=== PATIENT | male | born 1990 | race Caucasian/White ===

== ENCOUNTER 2016-10-31 18:05 | Emergency (ER) | payer SELFPAY ==
[~2016-10-31 18:05] MED LIST: PRED20 PO; VENTAER INH; ZITH250T PO
[2016-10-31 18:10] VITALS: O2SAT 98
[2016-10-31 18:11] VITALS: BP 139/88; PULSE 101; RESP 24; TEMP 99.9; O2SAT 100
[2016-10-31] MEDS ORDERED: SODIUM CHLORIDE 0.9% FLUSH 10 ML FLUSH IVF PRN (18:15)
--- NOTE | 2016-10-31 18:17 | PD ---
HPI Chief Complaint: OD/ Ingestion Time Seen by Provider: 18:10 Travel History International Travel<30 days: No Contact w/Intl Traveler<30days: No Traveled to known affect area: No History of Present Illness HPI 26-year-old male with history of HIV currently on medications, opiate overdose, presents to the ER today brought in by EMS after he was found on the ground and the son completely obtunded, barely breathing, and was given Narcan with complete awakening in the ER. He denies taking any substances. He was told that he was given Narcan and he states he is familiar with Narcan has been given in the past. He is fairly agitated, states he had to go to school. Modifying Factors: None Associated Signs & Symptoms: Suspected opiate overdose, given Narcan Risk Factors: HIV history, previous history of substance use PFSH Past Medical History Depression: Yes Immune Disorder: Yes (HIV) Past Surgical History Appendectomy: Yes Social History Alcohol Use: Yes (occ) Tobacco Use: Yes (ppd) Substance Use: Yes (hx of heroin use) Allergies-Medications (Allergen,Severity, Reaction): Coded Allergies: Haldol (Verified Allergy, Severe, 10/31/16) Reported Meds & Prescriptions Reported Meds & Active Scripts Active Zithromax Z-Shant (Azithromycin) 250 Mg Tab 250 Mg PO DIRECTED 5 Days 500 MG (2 TABLETS) PO ON DAY 1, THEN 250 MG (1 TABLET) PO ON DAYS 2 TO 5. Ventolin Hfa (Albuterol Sulfate) 18 Gm Aero 2 Puff INH Q4H PRN * SHAKE WELL BEFORE USE * Deltasone (Prednisone) 20 Mg Tab 20 Mg PO BID Review of Systems ROS Limitations: Uncooperative Except as stated in HPI: all other systems reviewed are Neg (agitated) Physical Exam Narrative GENERAL: Well-developed young white male who is fairly agitated in the ER, in moderate distress. Alert, awake, answering questions. SKIN: Focused skin assessment warm/dry. HEAD: Notable abrasions to the left forehead. Normocephalic. EYES: Pupils are large, equal and round and briskly reactive to light bilaterally. No scleral icterus. No injection or drainage. ENT: No nasal bleeding or discharge. Mucous membranes pink and moist. NECK: Trachea midline. No JVD. CARDIOVASCULAR: Regular rate and rhythm. No murmur appreciated. RESPIRATORY: No accessory muscle use. Clear to auscultation. Breath sounds equal bilaterally. GASTROINTESTINAL: Abdomen soft, non-tender, nondistended. Hepatic and splenic margins not palpable. MUSCULOSKELETAL: No obvious deformities. No clubbing. No cyanosis. No edema. NEUROLOGICAL: Awake and alert. No obvious cranial nerve deficits. Motor grossly within normal limits. Normal speech. PSYCHIATRIC: Appropriate mood and affect; insight and judgment normal. Data Data Last Documented VS Vital Signs Date Time Temp Pulse Resp B/P Pulse Ox O2 Delivery O2 Flow Rate FiO2 10/31/16 18:11 99.9 101 24 139/88 100 Orders Electrocardiogram (10/31/16 18:10) Complete Blood Count With Diff (10/31/16 18:) Comprehensive Metabolic Panel (10/31/16 18:10) Iv Access Insert/Monitor (10/31/16 18:) Ecg Monitoring (10/31/16 18:) Oximetry (10/31/16 18:10) Sodium Chloride 0.9% Flush (Ns Flush) (10/31/16 18:15) Drug Screen, Random Urine (10/31/16 18:10) Alcohol (Ethanol) (10/31/16 18:10) Ct Brain W/O Iv Contrast(Rout) (10/31/16:17) MDM Medical Decision Making Medical Screen Exam Complete: Yes Emergency Medical Condition: Yes Medical Record Reviewed: Yes Differential Diagnosis Agitation, apparent overdoserule out coingestions versus intracranial injuries Narrative Course Patient is fairly agitated in the ER, states that he has to go to class, wants to leave right away, despite having been told that he almost today. He was told that the Narcan will not last and whatever substance he took may cause overdose again. Patient is refusing to listen despite being told multiple times , seems agitated, may be disoriented as well. act has been instituted due to patient's insistent that he gets out of the ER and goes act his car and drives to class. There is concern about him being under multiple substances, and causing car accidents which may injure himself or others. Lab workup was ordered for the patient. CT of the brain was also ordered considering he was found down with abrasions over his forehead. Physician Communication Physician Communication Case is signed out at 7 PM to oncoming physician awaiting workup and observation. [place] acted. Diagnosis Primary Impression: Substance abuse Additional Impression: Opiate or related narcotic overdose Nadia Rosenberg MD October 31, 2016 18:17
[2016-10-31 19:00] LABS: ANION GAP 7 MEQ/L (5-15)
[2016-10-31 19:04] LABS: ALKALINE PHOSPHATASE 56 U/L (45-117); ALT (GPT) 29 U/L (12-78); AST (GOT) 27 U/L (15-37); BICARBONATE 29.4 MEQ/L (21.0-32.0); BLOOD UREA NITROGEN 16 MG/DL (7-18); CHLORIDE 104 MEQ/L (98-107); GLOMERULAR FILTRATION RATE 90 ML/MIN (>89); POTASSIUM 3.4 MEQ/L (3.5-5.1); SODIUM (NA) 140 MEQ/L (136-145); TOTAL BILIRUBIN ADULT 0.5 MG/DL (0.2-1.0)
--- NOTE | 2016-10-31 19:36 | PD ---
Physical Exam Date Seen by Provider: October 31, 2016 Time Seen by Provider: 19:34 Narrative Accepted in transfer of care from Dr. Rosenberg GENERAL: Well-developed well-nourished male sitting on stretcher intermittently pacing the exam room waiting on lab results and imaging study; GCS 15 Data Data Last Documented VS Vital Signs Date Time Temp Pulse Resp B/P Pulse Ox O2 Delivery O2 Flow Rate FiO2 10/31/16 18:11 99.9 101 24 139/88 100 10/31/16 18:10 Room Air Orders Electrocardiogram (10/31/16 18:10) Complete Blood Count With Diff (10/31/16 18:10) Comprehensive Metabolic Panel (10/31/16 18:10) Iv Access Insert/Monitor (10/31/16 18:10) Ecg Monitoring (10/31/16 18:10) Oximetry (10/31/16 18:10) Sodium Chloride 0.9% Flush (Ns Flush) (10/31/16 18:15) Drug Screen, Random Urine (10/31/16 18:10) Alcohol (Ethanol) (10/31/16 18:10) Ct Brain W/O Iv Contrast(Rout) (10/31/16 18:17) Psych Screen (10/31/16 19:11) Restraints Violent (10/31/16 20:08) Labs Laboratory Tests Test 10/31/16 10/31/16 10/31/16 18:15 21:44 21:51 Sodium Level 140 MEQ/L Potassium Level 3.4 MEQ/L Chloride Level 104 MEQ/L Carbon Dioxide Level 29.4 MEQ/L Anion Gap 7 MEQ/L Blood Urea Nitrogen 16 MG/DL Creatinine 1.01 MG/DL Estimat Glomerular Filtration 90 ML/MIN Rate Random Glucose 137 MG/DL Calcium Level 8.7 MG/DL Total Bilirubin 0.5 MG/DL Aspartate Amino Transf 27 U/L (AST/SGOT) Alanine Aminotransferase 29 U/L (ALT/SGPT) Alkaline Phosphatase 56 U/L Total Protein 7.7 GM/DL Albumin 4.2 GM/DL Ethyl Alcohol Level LESS THAN 3 MG/DL White Blood Count 14.6 TH/MM3 Red Blood Count 4.35 MIL/MM3 Hemoglobin 14.2 GM/DL Hematocrit 41.4 % Mean Corpuscular Volume 95.1 FL Mean Corpuscular Hemoglobin 32.7 PG Mean Corpuscular Hemoglobin 34.4 % Concent Red Cell Distribution Width 13.0 % Platelet Count 273 TH/MM3 Mean Platelet Volume 8.5 FL Neutrophils (%) (Auto) 62.2 % Lymphocytes (%) (Auto) 20.6 % Monocytes (%) (Auto) 8.4 % Eosinophils (%) (Auto) 8.2 % Basophils (%) (Auto) 0.6 % Neutrophils # (Auto) 9.1 TH/MM3 Lymphocytes # (Auto) 3.0 TH/MM3 Monocytes # (Auto) 1.2 TH/MM3 Eosinophils # (Auto) 1.2 TH/MM3 Basophils # (Auto) 0.1 TH/MM3 CBC Comment DIFF FINAL Differential Comment Urine Opiates Screen POS Urine Barbiturates Screen NEG Urine Amphetamines Screen NEG Urine Benzodiazepines Screen POS Urine Cocaine Screen POS Urine Cannabinoids Screen POS MDM Medical Record Reviewed: Yes Supervised Visit with [facility]: No Interpretation(s) CBC & BMP Diagram 10/31/16 18:15 10/31/16 21:[address] 10/31/167 Signed Impressions: Service Date/Time: Monday, October 31, 2016 20:19 - CONCLUSION: No acute intracranial findings Vince Santos MD Vital Signs Date Time Temp Pulse Resp B/P Pulse Ox O2 Delivery O2 Flow Rate FiO2 10/31/16 18:11 99.9 101 24 139/88 100 10/31/16 18:10 98 Room Air Urine drug screen: positive for opiates benzodiazepines cocaine and cannabinoids Serum alcohol: less than 3, not elevated Differential Diagnosis Accepted in transfer of care from Dr. Rosenberg, please refer to her dictation Narrative Course Accepted in transfer of care from Dr. Rosenberg, for follow up of diagnostics and disposition Patient waiting for lab results Patient becoming agitated wanting to elope and leave the emergency department discussed with patient need for imaging study and cooperation; patient is informed that he needs to say for at least 4 hours and that we know that as the Narcan clears assist him he won't have any recurrence of his episode of altered mentation or respiratory depression or collapse. Patient with sitter at bedside walking back and forth and exam room requesting to be discharged At 10:06 PM waiting on urine drug screen results. Patient admits to ingesting opiate Dilaudid benzodiazepine and Xanax marijuana on a daily basis and cocaine. Patient is remaining cooperative and waiting for urine drug screen results. The time is 10:30 PM patient has been monitored in the emergency department for more than 4 hours without any recurrence of somnolence or respiratory depression ; patient is cooperative and awaiting results as he is desirous of being discharged to home;GCS 15; urine drug screen is resulted and consistent with what patient states he ingested patient is stable for outpatient management he is encouraged to follow-up with [facility] for detox program resources. Diagnosis Primary Impression: Substance abuse Additional Impression: Opiate or related narcotic overdose [facility] Patient Instructions: General Instructions Additional Instruction: Discontinue polysubstance abuse Do not drink alcoholic beverages Follow-up with [facility] for referral for detox programs and rehabilitation programs regarding your polysubstance abuse issues Return to the emergency department for any concerns or change in condition Med/Other Pt SpecificInfo: No Meds Exist/No RX given Disposition: 01 DISCHARGE HOME Condition: Stable Ranjana Medrano MD October 31, 2016 19:36
--- NOTE | 2016-10-31 20:30 | RADRPT ---
EXAM DATE/TIME: 10/31/2016 20:19 [facility] COMPARISON: No previous studies available for comparison. INDICATIONS : Altered mental status. RADIATION DOSE: 44.52 CTDIvol (mGy) MEDICAL HISTORY : HIV. SURGICAL HISTORY : Appendectomy. ENCOUNTER: Initial ACUITY: 1 day PAIN SCALE: 0/10 LOCATION: cranial TECHNIQUE: Multiple contiguous axial images were obtained of the head. Using automated exposure control and adj ustment of the mA and/or kV according to patient size, radiation dose was kept as low as reasonably a chievable to obtain optimal diagnostic quality images. FINDINGS: CEREBRUM: The ventricles are normal for age. No evidence of midline shift, mass lesion, hemorrhage or acute in farction. No extra-axial fluid collections are seen. POSTERIOR FOSSA: The cerebellum and brainstem are intact. The 4th ventricle is midline. The cerebellopontine angle i s unremarkable. EXTRACRANIAL: The visualized portion of the orbits is intact. Mild mucosal sinus disease involving ethmoids. SKULL: The calvaria is intact. No evidence of skull fracture. CONCLUSION: No acute intracranial findings Vince Santos MD on October 31, 2016 at 20:27 Board Certified Radiologist. This report was verified electronically.
[2016-10-31 22:17] LABS: AUTOMATED NEUTROPHIL # 9.1 TH/MM3 (1.8-7.7); BASOPHIL # 0.1 TH/MM3 (0-0.2); BASOPHIL % 0.6 % (0.0-2.0); EOSINOPHIL # 1.2 TH/MM3 (0-0.4); EOSINOPHIL % 8.2 % (0.0-4.0); HEMATOCRIT 41.4 % (39.0-51.0); HEMO FLAGS DIFF FINAL; LYMPH % 20.6 % (9.0-44.0); MEAN CELL VOLUME 95.1 FL (80.0-100.0); MEAN CORPUSCULAR HEMOGLOBIN 32.7 PG (27.0-34.0); MEAN CORPUSCULAR HGB CONC 34.4 % (32.0-36.0); MONO % 8.4 % (0.0-8.0); NEUT % 62.2 % (16.0-70.0); PLATELET COUNT 273 TH/MM3 (150-450); RED BLOOD COUNT 4.35 MIL/MM3 (4.50-5.90); WHITE BLOOD COUNT 14.6 TH/MM3 (4.0-11.0)
[2016-10-31 22:25] LABS: AMPHETAMINE, URINE NEG (NEG); BARBITURATES, URINE NEG (NEG); COCAINE, URINE POS (NEG)
--- NOTE | 2016-11-01 15:12 | EKG ---
Date Performed: 10/31/2016 Time Performed: 19:23:39 PTAGE: 26 years EKG: Sinus rhythm POSSIBLE RIGHT VENTRICULAR CONDUCTION DELAY BORDERLINE ECG NO PREVIOUS TRACING DOCTOR: Chivo Gonzalez Interpretating Date/Time 11/01/2016 15:10:25
== END 2016-10-31 22:55 | disposition home or self-care (01) ==
LOC: NEPC 18:05
DX: T40.601A Poisoning by unspecified narcotics, accidental (unintentional), initial encounter (principal); B20 Human immunodeficiency virus [HIV] disease; F32.9 Major depressive disorder, single episode, unspecified; R45.1 Restlessness and agitation
CPT/HCPCS: 70450; 80053; 80307; 85025; 93005

== ENCOUNTER 2016-12-15 18:07 | Emergency (ER) | payer SELFPAY ==
[~2016-12-15] VITALS: Ht 185.4 cm; Wt 70.0 kg
[2016-12-15 18:12] VITALS: BP 128/78; PULSE 91; RESP 14; TEMP 98.1; O2SAT 100
[2016-12-15 18:21] VITALS: BP 128/78; PULSE 106; RESP 14; TEMP 98.1; O2SAT 98
--- NOTE | 2016-12-15 18:26 | PD ---
HPI . heroin overdose (Ani Tierney) Chief Complaint: OD/ Ingestion Time Seen by Provider: 18:26 (Ani Tierney) Time Seen by Provider: 18:26 (Cadence Sher DO) Travel History International Travel<30 days: No Contact w/Intl Traveler<30days: No Traveled to known affect area: No (Ani Tierney) History of Present Illness HPI 26-year-old male with HIV, polysubstance abuser here with drug overdose. Patient apparently overdosed on some heroin and was found by his boyfriend in his home unconscious. Paramedics arrived on scene and found the patient to be apneic and unresponsive. He was given a total of 2.4 mg of Narcan and returned now to his baseline level of functioning. Patient is AAO 4 and tells me that he feels fabulous. He tells me that he had a wild morning where he was drinking lots of alcohol and decided to shoot up heroin. He does not recall how much of this he actually used. He is now very apologetic and tells us that he was not trying to kill himself. He denies any suicidal or homicidal ideation. He says he is very thankful that he was able to be revived by Narcan. He is agreeable to labs and imaging. He currently denies any physical complaints. He tells me that emotionally he feels torn that he decided to use such a large dose of heroin. He is worried that his boyfriend will leave him. ( Ani Tierney) [facility] Past Medical History Depression: Yes Immune Disorder: Yes (HIV) Medical other: Yes (HIV POSITIVE) (Ani Tierney) Past Surgical History Appendectomy: Yes (Ani Tierney) Social History Alcohol Use: Yes (occ) Tobacco Use: Yes (ppd) Substance Use: Yes (hx of heroin use) (Ani Tierney) Allergies-Medications (Allergen,Severity, Reaction): Coded Allergies: Haldol (Verified Allergy, Severe, 12/15/16) Reported Meds & Prescriptions Reported Meds & Active Scripts Active Reported Odefsey (Vqgwzbvrtujss-Adsgqvtatwv-Dkdbbfmig Alafenam) 200-200-25 Mg Tab 1 Tab PO DAILY (Cadence Sher DO) Review of Systems General / Constitutional: No: Fever Eyes: No: Visual changes HENT: No: Headaches, Lightheadedness Cardiovascular: No: Chest Pain or Discomfort, Irregular Rhythm Respiratory: No: Cough, Shortness of Breath, Wheezing, Sneezing Gastrointestinal: No: Nausea, Vomiting, Abdominal Pain Genitourinary: No: Dysuria Musculoskeletal: No: Pain Skin: No Rash Neurologic: No: Weakness, Syncope Psychiatric: No: Depression Endocrine: No: Polydipsia Hematologic/Lymphatic: No: Easy Bruising (Ani Tierney) Physical Exam Narrative GENERAL: AAO x 4, no acute distress, Well-nourished, well-developed patient. SKIN: Warm and dry. No visible rashes or bruising. HEAD: Normocephalic and atraumatic. EYES: No scleral icterus. No injection or drainage. Pupils 2 mm and reactive to light ENT: No nasal drainage noted. Mucous membranes pink. Airway patent. NECK: Supple, trachea midline. No JVD. CARDIOVASCULAR: Regular rate and rhythm without murmurs, gallops, or rubs. RESPIRATORY: Breath sounds equal bilaterally. No accessory muscle use. No rhonchi or rales. GASTROINTESTINAL: Abdomen soft, non-tender, nondistended. EXTREMITIES: No cyanosis or edema. BACK: Nontender without obvious deformity. No CVA tenderness. NEURO: CN II-12 intact, mortgage loan closer strength normal b/l, UE and LE 5/5, no focal deficits PSYCH: AAO x 4, normal affect. (Ani Tierney) Data Data Last Documented VS Vital Signs Date Time Temp Pulse Resp B/P Pulse Ox O2 Delivery O2 Flow Rate FiO2 12/15/16 18:51 98 Room Air 12/15/16 18:21 98.1 106 14 128/78 (Cadence Sher DO) Orders Electrocardiogram (12/15/16 18:26) Complete Blood Count With Diff (12/15/16 18:26) Comprehensive Metabolic Panel (12/15/16 18:26) Chest, Single Ap (12/15/16 18:26) Iv Access Insert/Monitor (12/15/16 18:26) Ecg Monitoring (12/15/16 18:26) Oximetry (12/15/16 18:26) Sodium Chloride 0.9% Flush (Ns Flush) (12/15/16 18:30) Alcohol (Ethanol) (12/15/16 18:26) (Cadence Sher DO) Labs Laboratory Tests Test 12/15/16 18:25 White Blood Count 10.9 TH/MM3 Red Blood Count 4.71 MIL/MM3 Hemoglobin 15.2 GM/DL Hematocrit 45.9 % Mean Corpuscular Volume 97.4 FL Mean Corpuscular Hemoglobin 32.2 PG Mean Corpuscular Hemoglobin 33.1 % Concent Red Cell Distribution Width 13.7 % Platelet Count 250 TH/MM3 Mean Platelet Volume 8.5 FL Neutrophils (%) (Auto) 48.3 % Lymphocytes (%) (Auto) 35.9 % Monocytes (%) (Auto) 8.1 % Eosinophils (%) (Auto) 7.1 % Basophils (%) (Auto) 0.6 % Neutrophils # (Auto) 5.3 TH/MM3 Lymphocytes # (Auto) 3.9 TH/MM3 Monocytes # (Auto) 0.9 TH/MM3 Eosinophils # (Auto) 0.8 TH/MM3 Basophils # (Auto) 0.1 TH/MM3 CBC Comment DIFF FINAL Differential Comment (Cadence Sher DO) MDM Medical Decision Making Medical Screen Exam Complete: Yes Emergency Medical Condition: Yes Medical Record Reviewed: Yes Differential Diagnosis Heroin overdose, polysubstance abuse, drug induced mood disorder Narrative Course 26-year-old male status post drug overdose with heroin 5 x 2.4 mg of Narcan here and tells me he is feeling well. IV access was obtained, labs were drawn and imaging was ordered. Unfortunately at 1914 patient decides that he wants to leave AGAINST MEDICAL ADVICE. I've had a prolonged discussion with patient regarding the risk and possible consequences of leaving without close observation for at least the next 3-4 hours. I've reiterated to him that is a possible outcome, and despite my recommendations to remain in the hospital to follow labs and to be monitored, patient decides to sign out AGAINST MEDICAL ADVICE. He is AAO 4 and of sound mind to make this decision. (Ani Tierney) Diagnosis Primary Impression: Left against medical advice Condition: Stable Ani Tierney Dec 15, 2016 18:26 Cadence Sher DO Dec 15, 2016 21:36
[2016-12-15] MEDS ORDERED: EMTR1TAB2 PO (18:27)
[2016-12-15] MEDS ORDERED: SODIUM CHLORIDE 0.9% FLUSH 10 ML FLUSH IVF PRN (18:30)
[2016-12-15 18:42] LABS: AUTOMATED NEUTROPHIL # 5.3 TH/MM3 (1.8-7.7); BASOPHIL # 0.1 TH/MM3 (0-0.2); BASOPHIL % 0.6 % (0.0-2.0); EOSINOPHIL # 0.8 TH/MM3 (0-0.4); EOSINOPHIL % 7.1 % (0.0-4.0); HEMATOCRIT 45.9 % (39.0-51.0); HEMO FLAGS DIFF FINAL; LYMPH % 35.9 % (9.0-44.0); LYMPHOCYTE # 3.9 TH/MM3 (1.0-4.8); MEAN CELL VOLUME 97.4 FL (80.0-100.0); MEAN CORPUSCULAR HEMOGLOBIN 32.2 PG (27.0-34.0); MEAN CORPUSCULAR HGB CONC 33.1 % (32.0-36.0); MONO % 8.1 % (0.0-8.0); NEUT % 48.3 % (16.0-70.0); PLATELET COUNT 250 TH/MM3 (150-450); RED BLOOD COUNT 4.71 MIL/MM3 (4.50-5.90); RED CELL DISTRIBUTION WIDTH 13.7 % (11.6-17.2); WHITE BLOOD COUNT 10.9 TH/MM3 (4.0-11.0)
--- NOTE | 2016-12-15 18:47 | RADRPT ---
EXAM DATE/TIME: 12/15/2016 18:27 [facility] COMPARISON: No previous studies available for comparison. INDICATIONS : Syncope. Weakness. MEDICAL HISTORY : None. SURGICAL HISTORY : None. ENCOUNTER: Initial ACUITY: 1 day PAIN SCORE: 6/10 LOCATION: Bilateral chest FINDINGS: A single view of the chest demonstrates the lungs to be symmetrically aerated without evidence of mas s, infiltrate or effusion. The cardiomediastinal contours are unremarkable. Osseous structures are intact. CONCLUSION: Normal examination. Vince Patel MD on December 15, 2016 at 18:43 Board Certified Radiologist. This report was verified electronically.
[2016-12-15 18:51] VITALS: O2SAT 98
--- NOTE | 2016-12-16 12:18 | EKG ---
Date Performed: 12/15/2016 Time Performed: 18:57:00 PTAGE: 26 years EKG: Sinus rhythm POSSIBLE RIGHT VENTRICULAR CONDUCTION DELAY Since previous tracing, no significant change noted [facility] ECG PREVIOUS TRACING : 10/31/2016 19.23 DOCTOR: Prudencio Christianson Interpretating Date/Time 12/16/2016 12:16:08
== END 2016-12-15 19:30 | disposition left against medical advice (07) ==
LOC: NEPC 18:07
DX: T40.1X1A Poisoning by heroin, accidental (unintentional), initial encounter (principal); F32.9 Major depressive disorder, single episode, unspecified; Z21 Asymptomatic human immunodeficiency virus [HIV] infection status; Z53.21 Procedure and treatment not carried out due to patient leaving prior to being seen by health care provider; Z72.0 Tobacco use; Z88.5 Allergy status to narcotic agent; Z79.899 Other long term (current) drug therapy
CPT/HCPCS: 71010; 80053; 80307; 85025; 93005

== ENCOUNTER 2018-06-27 11:31 | Inpatient (IN) ==
[2018-06-27 16:16] LABS: Baso # (Auto) 0.2 th/mm3 (0.0-0.2); Baso % (Auto) 0.6 % (0.0-2.0); Eos # (Auto) 0.3 th/mm3 (0.0-0.4); Eos % (Auto) 1.1 % (0.0-4.0); Hematocrit 40.4 % (39.0-51.0); Hemoglobin 13.7 gm/dL (13.0-17.0); Lymph # (Auto) 2.2 th/mm3 (1.0-4.8); Lymph % (Auto) 8.8 % (9.0-44.0); Mean Corpuscular HGB Conc 33.8 % (32.0-36.0); Mean Corpuscular Hemoglobin 31.4 pg (27.0-34.0); Mean Corpuscular Volume 92.9 fL (80.0-100.0); Mono # (Auto) 1.8 th/mm3 (0.0-0.9); Mono % (Auto) 7.3 % (0.0-8.0); Neut # (Auto) 20.7 th/mm3 (1.8-7.7); Neut % (Auto) 82.2 % (16.0-70.0); Platelet Count 320 th/mm3 (150-450); Red Blood Count 4.35 mil/mm3 (4.50-5.90); Red Cell Distribution Width 14.8 % (11.6-17.2); White Blood Count 25.2 th/mm3 (4.0-11.0)
[2018-06-27] MEDS ORDERED: Vancomycin Inj 1,000 MG in Sodium Chlor 0.9% Inj 250 ML IV.SIG ONE (16:29)
[2018-06-27] MEDS ORDERED: Sod Chloride 0.9% Inj 1,000 ML IV.SIG SCH (16:30)
--- NOTE | 2018-06-27 17:00 | US ---
EXAM DATE: 06/27/2018 4:55 PM EST AGE/SEX: 27 years / Male INDICATIONS: Right arm pain. CLINICAL DATA: This is the patient's initial encounter. Patient reports that signs and symptoms have been present for 1 day and indicates a pain score of 8/10. MEDICAL/SURGICAL HISTORY: HIV. Appendectomy. COMPARISON: No prior exams available for comparison. FINDINGS: There is flow noted in the right jugular vein. However, there is occlusive thrombus noted in the right subclavian vein and axillary vein. This is characteristic of DVT. Flow is demonstrated i n the right brachial vein. There is flow noted in the radial and ulnar veins. The basilic vein appear s to be patent. Other: None. CONCLUSION: 1. There is occlusive deep venous thrombosis in the right subclavian and axillary veins. Electronically signed by: Eddy Acosta MD Board Certified Radiologist 06/27/2018 4:58 PM EST
--- NOTE | 2018-06-27 17:10 | ED ---
HPI General Chief complaint: Back Pain/Injury Stated complaint: Right Side Pain Time Seen by Provider: 06/27/18 15:20 History of Present Illness HPI narrative: Patient is a 27-year-old male with a history of HIV and IV drug use. Patient presents to the emergency room with complaints of low back pain as well as possible access in the right axillary region. He also has notable swelling of the veins in his right arm. Patient was seen yesterday at [facility] for low back pain. Patient states he had an x-ray done as well as a CT which were reportedly negative. Presents today very concerned about the swelling in his arm. As well as his back. Denies any saddle anesthesia, bowel or bladder incontinence. No lower extremity weakness, numbness, or tingling. He reports he has had fevers as high as 104.1 for the last 5 days. Noticed the swelling significantly increased in his arm over the last 24 hours. Patient states he was clean from IV drug use for 6 months until approximately a week ago and he used it again. He is concerned about the development of an abscess. Patient states his CD4 count in February was 1000 but then a repeat done in March was 26. No complaints of abdominal pain, nausea, vomiting, upper respiratory symptoms, SOB. He is complaining of some right chest discomfort. Related Data Home Medications Medication Instructions Recorded Confirmed sysxmxwiat-ucepkqge-bnhpve ala 1 tab PO DAILY 06/27/18 06/27/18 [Karolinaefsey] Allergies Allergy/AdvReac Type Severity Reaction Status Date / Time haloperidol Allergy Severe Muscle Pain Unverified 06/27/18 15:10 Review of Systems ROS: all other systems reviewed are negative [facility] Medical History Medical History HIV (human immunodeficiency virus infection) (Acute) Surgical History Surgical History History of appendectomy (Acute) Social History Social History Substance History: Active Abuse Second Hand Smoke Exposure: Yes Smoking Status: Current every day smoker Tobacco Type: Cigarettes How Often Do You Have a Drink Containing Alcohol: Monthly or less Recent Travel in [facility] within the Last 8 Weeks: No Recent Out of Country Travel within the Last 8 Weeks: No Substance Abuse Detail Heroin: Substance Use Status: Active Route Used Substance Abuse: Intravenously Reason for Use: Get High Methamphetamine: Substance Use Status: Active Route Used Substance Abuse: Intravenously Reason for Use: Get High Immunization History Tetanus Immunization: <5 Years Exam Narrative Exam Narrative: GENERAL: Alert, thin, male SKIN: Focused skin assessment warm/dry. Swelling noted in the right axillary region but no definite abscess HEAD: Atraumatic. Normocephalic. EYES: Pupils equal and round. No scleral icterus. No injection or drainage. ENT: No nasal bleeding or discharge. Mucous membranes pink and moist. NECK: Trachea midline. No JVD. CARDIOVASCULAR: Regular rate and rhythm. No murmur appreciated. RESPIRATORY: No accessory muscle use. Clear to auscultation. Breath sounds equal bilaterally. GASTROINTESTINAL: Abdomen soft, non-tender, nondistended. Hepatic and splenic margins not palpable. MUSCULOSKELETAL: Prominent swollen veins noted in the right arm with palpable mass in the axillary region on the right. Patient has positive radial pulses. There is also notable paraspinal swelling of the lumbar region bilaterally with left greater than right. NEUROLOGICAL: Awake and alert. No obvious cranial nerve deficits. Motor grossly within normal limits. Normal speech. PSYCHIATRIC: Appropriate mood and affect; insight and judgment normal. Course Initial Documented Vital Signs Temperature 97.9 F 06/27/18 11:44 Pulse Rate 87 06/27/18 11:44 Respiratory Rate 18 06/27/18 11:44 Blood Pressure 129/64 06/27/18 11:44 Pulse Oximetry 98 06/27/18 11:44 Last Documented Vital Signs Temperature 97.9 F 06/27/18 11:44 Pulse Rate 78 06/27/18 20:46 Respiratory Rate 15 06/27/18 20:46 Blood Pressure 124/68 06/27/18 20:46 Pulse Oximetry 96 06/27/18 20:46 Medical Decision Making LITO Attestation LITO supervised visit: Yes Attestation: I, Dr. Blackmon, have reviewed the advance practice practitioner's documentation and am in agreement, met with the patient face to face, made the diagnosis, and the medical decision making was done by me. *My assessment and Findings: Right arm DVT. Low back pain. Patient has leukocytosis. History of IV drug abuse. MRI lumbar spine pending. [facility] Narrative Medical decision making narrative: 27-year-old male patient with a history of HIV and IV drug use presents to the emergency room today with complaints of right arm swelling and pain as well as lumbar back pain. As mentioned shows prominent veins in the right arm as well as palpable mass in the right axillary region. Assessment of the back shows paraspinal swelling greater on the left side. Given swelling Doppler of the right arm was ordered. We will try to attempt imaging reports done at [facility]. IV established. CBC, CMP ordered. CBC showed a significant leukocytosis with a WBC count of 25 with a left shift. Lactic acid and blood cultures ordered. Case discussed with Dr. Velásquez and then subsequently with Dr. Blackmon advised MRI of the spine. 194 PM. I spoke with Dr. Han, neurosurgeon industrial/organizational psychologist. Advised ISC admission , IV antibiotic, neurosurgeon consultation and IR consultation for possible CT- guided aspiration. The case complicated with patient has positive for right arm DVTs. I spoke with Dr. Han, neurosurgeon industrial/organizational psychologist. Advised not to anticoagulate patient at this point. Vancomycin and Zosyn IV given. Patient was admitted [facility]. Neurosurgeon will be consulted. Dr. Han advised also consult IR for possible aspiration. Medical Screen Exam Complete: Yes Emergency Medical Condition: Yes Differential Diagnosis Differential Diagnosis: axillary abscess/DVT/lymphadenitis/spinal abscess Lab Data Result diagrams: 06/27/18 16:00 06/27/18 16:00 Lab Results 06/27/18 06/27/18 06/27/18 Range/Units 16:00 16:00 16:30 WBC 25.2 H (4.0-11.0) th/mm3 RBC 4.35 L (4.50-5.90) mil/mm3 Hgb 13.7 (13.0-17.0) gm/dL Hct 40.4 (39.0-51.0) % MCV 92.9 (80.0-100.0) fL MCH 31.4 (27.0-34.0) pg MCHC 33.8 (32.0-36.0) % RDW 14.8 (11.6-17.2) % Plt Count 320 (150-450) th/mm3 MPV 8.0 (7.0-11.0) fL Neut % (Auto) 82.2 H (16.0-70.0) % Lymph % (Auto) 8.8 L (9.0-44.0) % Harlan % (Auto) 7.3 (0.0-8.0) % Eos % (Auto) 1.1 (0.0-4.0) % Baso % (Auto) 0.6 (0.0-2.0) % Neut # (Auto) 20.7 H (1.8-7.7) th/mm3 Lymph # (Auto) 2.2 (1.0-4.8) th/mm3 Harlan # (Auto) 1.8 H (0.0-0.9) th/mm3 Eos # (Auto) 0.3 (0.0-0.4) th/mm3 Baso # (Auto) 0.2 (0.0-0.2) th/mm3 WBC Differential . Differential Comment Auto diff final Sodium 133 L (136-145) meq/L Potassium 4.9 (3.5-5.1) meq/L Chloride 95 L (98-107) meq/L Carbon Dioxide 30.8 (21.0-32.0) meq/L Anion Gap 7 (5-15) meq/L BUN 42 H (7-18) mg/dL Creatinine 1.49 H (0.60-1.30) mg/dL Estimated GFR 57 L (>89) mL/min Random Glucose 102 (74-106) mg/dL Lactic Acid 1.0 (0.4-2.0) mmol/L Calcium 8.4 L (8.5-10.1) mg/dL Total Bilirubin 0.6 (0.2-1.0) mg/dL AST 45 H (15-37) U/L ALT 24 (12-78) U/L Alkaline Phosphatase 257 H (45-117) U/L Total Protein 8.4 H (6.4-8.2) g/dL Albumin 2.6 L (3.4-5.0) g/dL Urine Color (Yellw/Straw) Urine Clarity (Clear) Urine pH (5.0-8.5) Ur Specific Shirley (1.002-1.035) Urine Protein (Neg-Trace) mg/dL Urine Glucose (UA) (Negative) mg/dL Urine Ketones (Negative) mg/dL Urine Occult Blood (Negative) Urine Nitrate (Negative) Urine Bilirubin (Negative) Urine Urobilinogen (Less than 2) mg/dL Ur Leukocyte Esterase (Negative) Urine WBC (0-5) /hpf Hyaline Casts (0-3) /lpf Granular Casts (None) /lpf Micro UA Comment Ur Microscopic Review Urine Culture Comments Urine Opiates Screen (Neg) Ur Barbiturates Screen (Neg) Ur Amphetamines Screen (Neg) U Benzodiazepines Scrn (Neg) Urine Cocaine Screen (Neg) U Cannabinoids Screen (Neg) 06/27/18 06/27/18 Range/Units 17:20 17:20 WBC (4.0-11.0) th/mm3 RBC (4.50-5.90) mil/mm3 Hgb (13.0-17.0) gm/dL Hct (39.0-51.0) % MCV (80.0-100.0) fL MCH (27.0-34.0) pg MCHC (32.0-36.0) % RDW (11.6-17.2) % Plt Count (150-450) th/mm3 MPV (7.0-11.0) fL Neut % (Auto) (16.0-70.0) % Lymph % (Auto) (9.0-44.0) % Harlan % (Auto) (0.0-8.0) % Eos % (Auto) (0.0-4.0) % Baso % (Auto) (0.0-2.0) % Neut # (Auto) (1.8-7.7) th/mm3 Lymph # (Auto) (1.0-4.8) th/mm3 Harlan # (Auto) (0.0-0.9) th/mm3 Eos # (Auto) (0.0-0.4) th/mm3 Baso # (Auto) (0.0-0.2) th/mm3 WBC Differential Differential Comment Sodium (136-145) meq/L Potassium (3.5-5.1) meq/L Chloride (98-107) meq/L Carbon Dioxide (21.0-32.0) meq/L Anion Gap (5-15) meq/L BUN (7-18) mg/dL Creatinine (0.60-1.30) mg/dL Estimated GFR (>89) mL/min Random Glucose (74-106) mg/dL Lactic Acid (0.4-2.0) mmol/L Calcium (8.5-10.1) mg/dL Total Bilirubin (0.2-1.0) mg/dL AST (15-37) U/L ALT (12-78) U/L Alkaline Phosphatase (45-117) U/L Total Protein (6.4-8.2) g/dL Albumin (3.4-5.0) g/dL Urine Color Yellow (Yellw/Straw) Urine Clarity Cloudy H (Clear) Urine pH 5.0 (5.0-8.5) Ur Specific Shirley 1.021 (1.002-1.035) Urine Protein 100 H (Neg-Trace) mg/dL Urine Glucose (UA) Negative (Negative) mg/dL Urine Ketones Negative (Negative) mg/dL Urine Occult Blood Negative (Negative) Urine Nitrate Negative (Negative) Urine Bilirubin Negative (Negative) Urine Urobilinogen 2.0 H (Less than 2) mg/dL Ur Leukocyte Esterase Negative (Negative) Urine WBC 4 (0-5) /hpf Hyaline Casts 8 (0-3) /lpf Granular Casts 14 (None) /lpf Micro UA Comment Culture not ind Ur Microscopic Review Not Reportable Urine Culture Comments Culture not ind Urine Opiates Screen Pos H (Neg) Ur Barbiturates Screen Neg (Neg) Ur Amphetamines Screen Pos H (Neg) U Benzodiazepines Scrn Neg (Neg) Urine Cocaine Screen Pos H (Neg) U Cannabinoids Screen Neg (Neg) Imaging Data Radiologist's impression: Venous Doppler Study 06/27/18 15:53 CONCLUSION: 1. There is occlusive deep venous thrombosis in the right subclavian and axillary veins. Lumbar Spine MRI 06/27/18 17:39 CONCLUSION: Abnormal mixed signal intensity epidural fluid collection in the anterior extradural space from L5 down to mid body of S1 causing moderate to severe thecal sac stenosis L5-S1 highly suspicious for epidural abscess in the appropriate clinical setting. Discharge Plan Discharge Disposition Patient Disposition: ED Admit(ED Internal Use Only) Discharge Order Discharge Orders: ED Use Only Admit Order (Routine); Ordered 06/27/18 Ordered By: Nico Blackmon Discharge Details Diagnosis: Abscess in epidural space of L2-L5 lumbar spine, Acute deep vein thrombosis ( DVT) of axillary vein of right upper extremity, Drug abuse, IV, HIV positive Physicians Team ED Provider: Ethan Velásquez ED Midlevel Provider: Suyapa Phillips Primary Care Provider: UNKNOWN, Attending Provider: David Acosta Other Providers: Fredy Han ; Ashkan Hardy ; Michelle Onofre Status ED Status: Admitted Patient
[2018-06-27 17:11] LABS: Alanine Aminotransferase 24 U/L (12-78); Albumin 2.6 g/dL (3.4-5.0); Anion Gap 7 meq/L (5-15); Aspartate Aminotransferase 45 U/L (15-37); Blood Urea Nitrogen 42 mg/dL (7-18); Calcium 8.4 mg/dL (8.5-10.1); Carbon Dioxide 30.8 meq/L (21.0-32.0); Chloride 95 meq/L (98-107); Glomerular Filtration Rate 57 mL/min (>89); Glucose,Random 102 mg/dL (74-106); Potassium 4.9 meq/L (3.5-5.1); Sodium 133 meq/L (136-145)
[2018-06-27 17:12] LABS: Alkaline Phosphatase 257 U/L (45-117); Total Protein 8.4 g/dL (6.4-8.2)
[2018-06-27 17:46] LABS: Amphetamine Screen,Urine Pos (Neg); Barbiturate Screen,Urine Neg (Neg); Cannabinoid Screen,Urine Neg (Neg); Cocaine Screen,Urine Pos (Neg)
[2018-06-27 17:50] LABS: Opiate Screen,Urine Pos (Neg)
[2018-06-27] MEDS ORDERED: Gadobutrol PF 7.5 MMOL/7.5 ML Vial (for RAD) IV.SIG ONE (18:39)
--- NOTE | 2018-06-27 19:17 | MR ---
EXAM DATE: 06/27/2018 7:03 PM EST AGE/SEX: 27 years / Male INDICATIONS: Abscess. CLINICAL DATA: This is the patient's initial encounter. Patient reports that signs and symptoms have been present for 1 day and indicates a pain score of 7/10. MEDICAL/SURGICAL HISTORY: HIV. IVDA. Appendectomy. COMPARISON: No prior exams available for comparison. TECHNIQUE: Multiplanar, multisequence MRI examination of the lumbar spine was performed without and with 7 ml Gadavist (gadobutrol) contrast as a single exam dose. FINDINGS: The most caudal-appearing lumbar vertebra is numbered as L5. The marrow signal appears int act. No significant compression deformities, spondylolisis, or spondylolesthesis is seen. There is a bnormal epidural area of mixed signal intensity within the anterior extradural space extending from L 4-[address] down to mid body of S1 towards the left side anteriorly suspicious for epidu ral abscess in the appropriate clinical setting. L1-L2: No appreciable compromise to the thecal sac, or the exiting nerve roots is seen. The neural foramina and lateral recesses are patent bilaterally. L2-L3: No appreciable compromise to the thecal sac, or the exiting nerve roots is seen. The neural foramina and lateral recesses are patent bilaterally. L3-L4: No appreciable compromise to the thecal sac, or the exiting nerve roots is seen. The neural foramina and lateral recesses are patent bilaterally. L4-L5: Anterior epidural extra-axial mixed signal intensity fluid collection is seen slightly indent ing the thecal sac without any significant thecal sac stenosis. L5-S1: Anterior epidural extra-axial mixed signal intensity fluid collection is seen causing moderat e to severe thecal sac stenosis at this level. The neural foramina are patent bilaterally. CONCLUSION: Abnormal mixed signal intensity epidural fluid collection in the anterior extradural spa ce from L5 down to mid body of S1 causing moderate to severe thecal sac stenosis L5-S1 highly suspici ous for epidural abscess in the appropriate clinical setting. Electronically signed by: Andreas Watts MD Board Certified Radiologist 06/27/2018 7:16 PM EST
[2018-06-27 19:40] LABS: Bilirubin,Urine Negative (Negative); Clarity,Urine Cloudy (Clear); Glucose,Urine (UA) Negative (Negative); Hyaline Casts,Urine 8 /lpf (0-3); Leukocyte Esterase,Urine Negative (Negative); Nitrite,Urine Negative (Negative); Specific Gravity,Urine 1.021 (1.002-1.035)
[2018-06-27 19:44] LABS: Color,Urine Yellow (Yellw/Straw)
[2018-06-27] MEDS ORDERED: Morphine Inj 4 MG/ML Vial IV.PUSH ONE (19:54)
[2018-06-27] MEDS ORDERED: Piperacil/Tazo 3.375 GM Premix 3.375 GM/50 ML PIGGYBACK IV.SIG ONE (20:23)
[2018-06-27] MEDS ORDERED: Bisacodyl 10 MG Supp RECTAL PRN (20:33)
[2018-06-27] MEDS ORDERED: Acetaminophen 325 MG Tablet PO PRN (20:33)
[2018-06-27] MEDS ORDERED: Vancomycin Consult Pharmacy OTHER PRN (20:40)
--- NOTE | 2018-06-27 21:08 | P.CONNS ---
History of Present Illness Consult date: 06/27/18 Requesting Physician: Nico Blackmon Reason for Consult: Epidural abscess Primary Care Provider: UNKNOWN Chief Complaint: Low back pain History of Present Illness: I was asked by Dr. Blackmon ( ED attending) to see and evaluate 27-year-old male who presents to the emergency room with complaints of low back pain as well as possible access in the right axillary region. He also has notable swelling of the veins in his right arm. Patient was seen yesterday at [facility] for low back pain. Patient states he had an x-ray done as well as a CT which were reportedly negative. Presents today very concerned about the swelling in his arm. As well as his back. Denies any saddle anesthesia, bowel or bladder incontinence. No lower extremity weakness, numbness, or tingling. The patient states he was clean from IV drug use for 6 months until approximately a week ago. His CD4 count in February was 1000 but then a repeat done in March was 26. No complaints of abdominal pain, nausea, vomiting, upper respiratory symptoms, SOB. Patient was also found to have a DVT in the right subclavian vein. [facility] - History History Provided By: Patient - Medical History Medical History: Medical History (Last Reviewed 06/27/18 @ 21:52 by Fredy Han MD) HIV (human immunodeficiency virus infection) - Surgical History Surgical History: Surgical History (Last Reviewed 06/27/18 @ 21:52 by Fredy Han MD) History of appendectomy - Tobacco History Second Hand Smoke Exposure: Yes Tobacco Use In Past 30 Days: Yes Smoking Status: Current every day smoker Tobacco Type: Cigarettes - Alcohol History How Often Do You Have a Drink Containing Alcohol: Monthly or less - Substance Use History Substance History: Active Abuse - Substance Use Type Heroin Status: Active Route Used: Intravenously Reason for Use: Get High Methamphetamine Status: Active Route Used: Intravenously Reason for Use: Get High - Travel History Recent Travel in the [place] Within the Last 8 Weeks: No Recent Travel Out of the Country Within the Last 8 Weeks: No - Immunization History Tetanus Immunization: <5 Years Medications and Allergies Active Medications: Active Medications Acetaminophen (Tylenol) 650 mg PO Q6H PRN PRN Reason: PAIN 1-10 AND/OR FEVER >101F Al Hydroxide/Mg Hydroxide (Milk Of Magnesia Liq) 30 ml PO Q12H PRN PRN Reason: Mild Constipation Albuterol (Duoneb Neb (Prn)) 1 ampul NEB Q2HR NEB PRN PRN Reason: WHEEZING Bisacodyl (Dulcolax Supp) 10 mg RECTAL DAILY PRN PRN Reason: SEVERE CONSITIPATION Chlorhexidine Gluconate (Chlorhexidine 2% Cloth) 3 pack TOPICAL DAILY@0400 JAYLYN Stop: 07/03/18 03:59 Chlorhexidine Gluconate (Chlorhexidine 2% Cloth) 3 pack TOPICAL DAILY@0400 PRN PRN Reason: Extra cloth needed Stop: 07/03/18 03:59 Famotidine (Pepcid Pf Inj) 20 mg IV.PUSH Q12HR JAYLYN Sodium Chloride (Ns Inj) 1,000 mls @ 150 mls/hr IV.CONT .Q6H40M JAYLYN Piperacillin/Tazobactam/Dextrose (Zosyn 4.5 Gm Premix) 4.5 gm in 100 mls @ 200 mls/hr IV.SIG Q6H JAYLYN Lactulose (Lactulose Liq) 30 ml PO DAILY PRN PRN Reason: SEVERE CONSITIPATION Morphine Sulfate (Morphine Inj) 4 mg IV.PUSH Q4H PRN PRN Reason: PAIN SCALE 6 TO 10 Ondansetron HCl (Zofran Inj) 4 mg IV.PUSH Q6H PRN PRN Reason: NAUSEA OR VOMITING Oxycodone/Acetaminophen (Percocet 5/325 Mg) 2 tab PO Q4H PRN PRN Reason: PAIN SCALE 1 TO 5 Pharmacy Profile Note (Vancomycin Consult Pharmacy) 1 each OTHER UNSCH PRN PRN Reason: Pharmacy to dose Senna/Docusate Sodium (Hayley-Colace) 1 tab PO BID [facility] Sennosides (Senokot) 17.2 mg PO Q12H PRN PRN Reason: Moderate Constipation Sodium Chloride (Ns Flush) 2 ml IV.FLUSH BID JAYLYN Sodium Chloride (Ns Flush) 2 ml IV.FLUSH PRN PRN PRN Reason: FLUSH AFTER USING IV ACCESS Allergies Allergy/AdvReac Type Severity Reaction Status Date / Time haloperidol Allergy Severe Muscle Pain Unverified 06/27/18 15:10 Home Medications Medication Instructions Recorded Confirmed Type butmemtxoq-lraecpmy-pngigb ala 1 tab PO DAILY 06/27/18 06/27/18 History [Odefsey] Exam Vital signs: Vital Signs 06/27/18 11:44 06/27/18 20:46 Temperature 97.9 F Pulse Rate 87 78 Respiratory Rate 18 15 Blood Pressure 129/64 124/68 Pulse Oximetry 98 96 Intake & Output 06/27/18 06/27/18 06/28/18 06:59 18:59 06:59 Intake Total 1250 / 1250 Balance 1250 / 1250 Weight 70.307 kg Intake: IV 1250 / 1250 NS Inj 1,000 ML @ 1000 mls/hr 1000 / 1000 IV.SIG BOLUS JAYLYN Rx#:[id number] Vancomycin Inj 1,000 MG In NS 250 / 250 Inj 250 ML @ 250 mls/hr IV.SIG ONCE ONE Rx#:[id number] - Constitutional no acute distress, thin, cooperative Comments: c/o Right chest wall pain and low back pain - Routine HEENT Exam Head: Present: normocephalic, atraumatic Eye: Present: EOMI, PERRL, normal accommodation ENT: Present: mucous membranes moist, oropharynx clear, dentition normal, nares patent, external ear normal, TM's clear bilaterally - Routine Neck Exam Present: supple, full ROM, trachea midline - Routine Respiratory Exam Present: CTA bilaterally - Routine Cardiovascular Exam Present: RRR - Routine Abdominal Exam Present: soft, normoactive bowel sounds - Routine Extremities Exam Present: full ROM, normal capillary refill Comments: + SLR bilaterally to approximately 20-30 degrees - Routine Skin Exam Present: intact, warm, normal turgor - Routine Neurological Exam Present: alert, oriented X3, CN II-XII intact, normal reflexes, moving all extremities, normal tone, vision grossly intact, hearing grossly intact, normal speech - Detailed Neurological Exam: Coma Scale Verbal Response: Oriented Motor Response: Obey commands - Routine Psychiatric Exam Present: normal affect, normal thought process, cooperative Results - Laboratory Findings CBC and BMP: 06/27/18 16:00 06/27/18 16:00 Abnormal lab findings: Abnormal Labs 06/27/18 06/27/18 06/27/18 16:00 16:00 17:20 WBC 25.2 H RBC 4.35 L Neut % (Auto) 82.2 H Lymph % (Auto) 8.8 L Neut # (Auto) 20.7 H Obion # (Auto) 1.8 H Sodium 133 L Chloride 95 L BUN 42 H Creatinine 1.49 H Estimated GFR 57 L Calcium 8.4 L AST 45 H Alkaline Phosphatase 257 H Total Protein 8.4 H Albumin 2.6 L Urine Clarity Urine Protein Urine Urobilinogen Urine Opiates Screen Pos H Ur Amphetamines Screen Pos H Urine Cocaine Screen Pos H 06/27/18 17:20 WBC RBC Neut % (Auto) Lymph % (Auto) Neut # (Auto) Obion # (Auto) Sodium Chloride BUN Creatinine Estimated GFR Calcium AST Alkaline Phosphatase Total Protein Albumin Urine Clarity Cloudy H Urine Protein 100 H Urine Urobilinogen 2.0 H Urine Opiates Screen Ur Amphetamines Screen Urine Cocaine Screen - Diagnostic Findings EKG: report reviewed, image reviewed Chest x-ray: report reviewed, image reviewed Abdominal x-ray: report reviewed, image reviewed CT scan - abdomen: report reviewed, image reviewed CT scan - chest: report reviewed, image reviewed CT scan - pelvic: report reviewed, image reviewed US - abdomen: report reviewed, image reviewed US - kidney: report reviewed, image reviewed US - pelvic: report reviewed, image reviewed Assessment and Plan - Plan 27 yo male IVDA with acute onset of LBP. Lumbar spine MRI suspicious for ventral epidural abscess and WBC 25K. Admit to ICU, Neurochecks q1hr Mehta culture STAT ESR and CRP IR consult to biopsy Lumbar epidural space. Would start on Vanco, Ceftriaxone and Flagyl for the time being OK to administer prophylactic but not therapeutic anticoagulation for DVT in view of epidural abscess and possible need for IR biopsy. Morphine/Percocet as needed for pain. Will follow
--- NOTE | 2018-06-27 21:48 | P.HPCC ---
History of Present Illness Service: Critical care medicine Primary Care Physician: UNKNOWN Chief Complaint: Low back pain History of Present Illness: 27-year-old male with a medical history significant for HIV, IV drug abuse who presented with a history of low back pain that started a few days ago along with swelling noted in his right axillary region with prominence of his veins in the right upper extremity. He was evaluated at [facility] for low back pain underwent x-ray and CT scan which was reported negative and he was discharged he reportedly has been having of patient came back to the ER with worsening low back pain today however without any bowel or bladder incontinence or lower extremity weakness. He has been having high-grade fever up to 105 degrees over the last 3-4 days. He last used IV heroin last night. Patient stated that his CD4 count in February was 1000 however repeat that in March was 26. He has been on antiretroviral therapy. He also complains of right-sided chest pain with some difficulty with his breathing. Patient underwent MRI lumbosacral spine which revealed enhancement in L5-S1 region highly suspicious for epidural abscess. Patient was also found to have a DVT in the right subclavian vein. Stat neurosurgery consult was requested by ER and case discussed with Dr. Han for epidural abscess. Patient was accepted for admission by critical care medicine service with consult to neurosurgery. When I evaluated the patient he was laying in the ER stretcher. He complains of pain all over. He is requesting pain medications. He wishes to eat. Inpatient Certification: I certify that the inpatient services were ordered in accordance with Medicare regulations governing the order. This includes certification that hospital inpatient services are reasonable and necessary and in the case of services not specified as inpatient-only under 42 CFR 419.22(n), that they are appropriately provided as inpatient services in accordance to with the 2-midnight benchmark under 43 CFR 412.3(e) Estimated Total Length of Stay (Days): 7 Plans for Post Hospital Care: Not yet determined Review of Systems All other systems reviewed negative except as stated in [facility] - History History Provided By: Patient - Medical History Medical History: Medical History (Last Updated 06/27/18 @ 15:08 by Marge Laura) HIV (human immunodeficiency virus infection) - Surgical History Surgical History: Surgical History (Last Updated 06/27/18 @ 15:08 by Marge Laura) History of appendectomy - Tobacco History Second Hand Smoke Exposure: Yes Tobacco Use In Past 30 Days: Yes Smoking Status: Current every day smoker Tobacco Type: Cigarettes - Alcohol History How Often Do You Have a Drink Containing Alcohol: Monthly or less - Substance Use History Substance History: Active Abuse - Substance Use Type Heroin Status: Active Route Used: Intravenously Reason for Use: Get High Methamphetamine Status: Active Route Used: Intravenously Reason for Use: Get High - Travel History Recent Travel in the [place] Within the Last 8 Weeks: No Recent Travel Out of the Country Within the Last 8 Weeks: No - Immunization History Tetanus Immunization: <5 Years Medications and Allergies Active Medications: Active Medications Acetaminophen (Tylenol) 650 mg PO Q6H PRN PRN Reason: PAIN 1-10 AND/OR FEVER >101F Al Hydroxide/Mg Hydroxide (Milk Of Magnesia Liq) 30 ml PO Q12H PRN PRN Reason: Mild Constipation Albuterol (Duoneb Neb (Prn)) 1 ampul NEB Q2HR NEB PRN PRN Reason: WHEEZING Bisacodyl (Dulcolax Supp) 10 mg RECTAL DAILY PRN PRN Reason: SEVERE CONSITIPATION Chlorhexidine Gluconate (Chlorhexidine 2% Cloth) 3 pack TOPICAL DAILY@0400 JAYLYN Stop: 07/03/18 03:59 Chlorhexidine Gluconate (Chlorhexidine 2% Cloth) 3 pack TOPICAL DAILY@0400 PRN PRN Reason: Extra cloth needed Stop: 07/03/18 03:59 Famotidine (Pepcid Pf Inj) 20 mg IV.PUSH Q12HR JAYLYN Sodium Chloride (Ns Inj) 1,000 mls @ 150 mls/hr IV.CONT .Q6H40M JAYLYN Piperacillin/Tazobactam/Dextrose (Zosyn 4.5 Gm Premix) 4.5 gm in 100 mls @ 200 mls/hr IV.SIG Q6H JAYLYN Lactulose (Lactulose Liq) 30 ml PO DAILY PRN PRN Reason: SEVERE CONSITIPATION Morphine Sulfate (Morphine Inj) 4 mg IV.PUSH Q4H PRN PRN Reason: PAIN SCALE 6 TO 10 Ondansetron HCl (Zofran Inj) 4 mg IV.PUSH Q6H PRN PRN Reason: NAUSEA OR VOMITING Oxycodone/Acetaminophen (Percocet 5/325 Mg) 2 tab PO Q4H PRN PRN Reason: PAIN SCALE 1 TO 5 Pharmacy Profile Note (Vancomycin Consult Pharmacy) 1 each OTHER UNSCH PRN PRN Reason: Pharmacy to dose Senna/Docusate Sodium (Hayley-Colace) 1 tab PO BID JAYLYN Sennosides (Senokot) 17.2 mg PO Q12H PRN PRN Reason: Moderate Constipation Sodium Chloride (Ns Flush) 2 ml IV.FLUSH BID JAYLYN Sodium Chloride (Ns Flush) 2 ml IV.FLUSH PRN PRN PRN Reason: FLUSH AFTER USING IV ACCESS Allergies Allergy/AdvReac Type Severity Reaction Status Date / Time haloperidol Allergy Severe Muscle Pain Unverified 06/27/18 15:10 Home Medications Medication Instructions Recorded Confirmed Type [id number] ala 1 tab PO DAILY 06/27/18 06/27/18 History [Odefsey] Results - Labs CBC & Chem 7: 06/27/18 16:00 06/27/18 16:00 Labs: Short CBC 06/27/18 Range/Units 16:00 WBC 25.2 H (4.0-11.0) th/mm3 Hgb 13.7 (13.0-17.0) gm/dL Hct 40.4 (39.0-51.0) % Plt Count 320 (150-450) th/mm3 BMP 06/27/18 16:00 Sodium 133 L Potassium 4.9 Chloride 95 L Carbon Dioxide 30.8 BUN 42 H Creatinine 1.49 H Calcium 8.4 L Liver Function 06/27/18 Range/Units 16:00 Total Bilirubin 0.6 (0.2-1.0) mg/dL AST 45 H (15-37) U/L ALT 24 (12-78) U/L Alkaline Phosphatase 257 H (45-117) U/L Albumin 2.6 L (3.4-5.0) g/dL Urine 06/27/18 Range/Units 17:20 Urine Color Yellow (Yellw/Straw) Urine Clarity Cloudy H (Clear) Urine pH 5.0 (5.0-8.5) Ur Specific [place] 1.021 (1.002-1.035) Urine Protein 100 H (Neg-Trace) mg/dL Urine Glucose (UA) Negative (Negative) mg/dL - Imaging Impressions Venous Doppler Study 06/27/18 15:53 CONCLUSION: 1. There is occlusive deep venous thrombosis in the right subclavian and axillary veins. Lumbar Spine MRI 06/27/18 17:39 CONCLUSION: Abnormal mixed signal intensity epidural fluid collection in the anterior extradural space from L5 down to mid body of S1 causing moderate to severe thecal sac stenosis L5-S1 highly suspicious for epidural abscess in the appropriate clinical setting. Exam Vital signs: Vital Signs 06/27/18 11:44 06/27/18 20:46 Temperature 97.9 F Pulse Rate 87 78 Respiratory Rate 18 15 Blood Pressure 129/64 124/68 Pulse Oximetry 98 96 Intake & Output 06/27/18 06/27/18 06/28/18 06:59 18:59 06:59 Intake Total 1250 / 1250 Balance 1250 / 1250 Weight 70.307 kg Intake: IV 1250 / 1250 NS Inj 1,000 ML @ 1000 mls/hr 1000 / 1000 IV.SIG BOLUS JAYLYN Rx#:[id number] Vancomycin Inj 1,000 MG In NS 250 / 250 Inj 250 ML @ 250 mls/hr IV.SIG ONCE ONE Rx#:[id number] Narrative: HEENT/Neuro: No pallor or icterus, tongue moist, DELMY, Awake alert oriented 3 , nonfocal grossly, moving all 4 extremities though mobility limited secondary to low back pain. Tenderness over lower back Neck: No JVD Chest/pulmonary: CTA bilaterally Cardiovascular: S1-S2 regular no gallop or murmur GI/abdomen: Soft, nontender, bowel sounds present Extremities: Warm bilaterally, prominence of veins over right upper extremity with swelling noted in right axilla with tenderness. Scarring/track doran over extremities noted Caprini VTE Risk Assessment Caprini VTE Risk Assessment: Moderate/High Risk (score >= 2) Caprini Risk Assessment Model: Point Value = 1 Point Value = 2 Point Value = 3 Point Value = 5 Age 41-60 Minor surgery BMI > 25 kg/m2 Swollen legs Varicose veins or History of unexplained or recurrent spontaneous Oral contraceptives or hormone replacement Sepsis (< 1 month) Serious lung disease, including pneumonia (< 1 month) Abnormal pulmonary function Acute myocardial infarction Congestive heart failure (< 1 month) History of inflammatory bowel disease Medical patient at bed rest Age 61-74 Arthroscopic surgery Major open surgery (> 45 min) Laparoscopic surgery (> 45 min) Malignancy Confined to bed (> 72 hours) Immobilizing plaster cast Central venous access Age >= 75 History of VTE Family history of VTE Factor V Leiden Prothrombin [id number] Lupus anticoagulant Anticardiolipin antibodies Elevated serum homocysteine Heparin-induced thrombocytopenia Other congenital or acquired thrombophilia Stroke (< 1 month) Elective arthroplasty Hip, pelvis, or leg fracture Acute spinal cord injury (< 1 month) Prophylaxis Regimen: Total Risk Factor Score Risk Level Prophylaxis Regimen 0-1 Low Early ambulation 2 Moderate Order ONE of the following: *Sequential Compression Device (SCD) *Heparin 5000 units SQ BID 3-4 Higher Order ONE of the following medications: *Heparin 5000 units SQ TID *Enoxaparin/Lovenox 40 mg SQ daily (WT < 150 kg, CrCl > 30 mL/min) *Enoxaparin/Lovenox 30 mg SQ daily (WT < 150 kg, CrCl > 10-29 mL/min) *Enoxaparin/Lovenox 30 mg SQ BID (WT < 150 kg, CrCl > 30 mL/min) AND/OR *Sequential Compression Device (SCD) 5 or more Highest Order ONE of the following medications: *Heparin 5000 units SQ TID (Preferred with Epidurals) *Enoxaparin/Lovenox 40 mg SQ daily (WT < 150 kg, CrCl > 30 mL/min) *Enoxaparin/Lovenox 30 mg SQ daily (WT < 150 kg, CrCl > 10-29 mL/min) *Enoxaparin/Lovenox 30 mg SQ BID (WT < 150 kg, CrCl > 30 mL/min) AND *Sequential Compression Device (SCD) Assessment and Plan - Assessment and Plan Plan: 27-year-old male with: Sepsis L5-S1 epidural abscess/collection Right upper extremity DVT IV drug abuse Suspected endocarditis Suspected pulmonary septic emboli HIV Plan: Neuro: Admit to ICU, neurochecks per protocol. ER consulted neurosurgery stat and has already discussed the case with Dr. Han who will be evaluating patient for suspected epidural abscess at L5-S1. Per my discussion with Dr. Blackmon neurosurgery did not want anticoagulation for DVT in view of epidural abscess in view of possible need for surgery. Morphine/Percocet as needed for pain. Watch for withdrawal. Cardiovascular: IV hydration, watch for hypotension. Consult cardiology for OLIVIA to evaluate for vegetations in view of suspected endocarditis. Pulmonary: Supplemental O2. CTA pulmonary angiogram to evaluate for septic emboli/pulmonary emboli in view of right subclavian vein DVT and chest pain/ shortness of breath. GI/liver: n.p.o. after midnight. Renal/: IV hydration, strict intake output, monitor and replete elect lites, follow given creatinine. ID: Follow-up blood cultures. Empiric antibiotic coverage with IV vancomycin/ Zosyn. Neurosurgery to decide further intervention for epidural abscess/ collection. ID consult requested for further sepsis workup/epidural abscess/ HIV. Heme: Follow CBC and coags Endocrine: Watch for hypoglycemia, SSI for glycemic control if needed Prophylaxis: Pepcid/SCDs. No heparin or Lovenox until cleared by neurosurgery in view of epidural abscess/collection.
[2018-06-27] MEDS: Morphine Inj 4 MG/ML Vial IV.PUSH PRN (21:58)
--- NOTE | 2018-06-27 22:21 | CT ---
EXAM DATE: 06/27/2018 10:09 PM EST AGE/SEX: 27 years / Male INDICATIONS: Short of breath, chest pain CLINICAL DATA: This is the patient's initial encounter. Patient reports that signs and symptoms have been present for 1 day and indicates a pain score of 10/10. MEDICAL/SURGICAL HISTORY: HIV. Deep venous thrombosis. Lumbar abscess Appendectomy. RADIATION DOSE: 19.50 CTDI (mGy) ; Combined studies COMPARISON: No prior exams available for comparison. TECHNIQUE: Volumetric scanning was performed using a multi-row detector CT scanner during bolus infu dulce of 99ML ml Omnipaque 350 (iohexol) nonionic water-soluble contrast as a cumulative dose for mul tiple exams. The data was post processed with a variety of visualization algorithms including full vo lume maximum intensity projection and sliding thin slab reformation. Using automated exposure contro l and adjustment of the mA and/or kV according to patient size, radiation dose was kept as low as jose sonably achievable to obtain optimal diagnostic quality images. DICOM format image data is available electronically for review and comparison. FINDINGS: No filling defects identified to suggest pulmonary embolic disease. There is a cavitary nodule superi or segment right lower lobe measuring about 2.1 cm in diameter. This patchy airspace disease in both lower lobes posteriorly. Mucoid material trachea above jose. Trace pleural fluid and pericardial fluid. No acute findings in the upper abdomen. CONCLUSION: 1. Negative for pulmonary embolus. 2. Cavitary nodule superior segment right lower lobe measuring 2.1 cm. Patchy airspace consolidation in both lower lobes most characteristic of bronchopneumonia. Trace pleural fluid. Electronically signed by: Greg Ellis MD Board Certified Radiologist 06/27/2018 10:20 PM EST
--- NOTE | 2018-06-27 22:23 | CT ---
EXAM DATE: 06/27/2018 10:09 PM EST AGE/SEX: 27 years / Male INDICATIONS: Abdomen Pain CLINICAL DATA: This is the patient's initial encounter. Patient reports that signs and symptoms have been present for 1 day and indicates a pain score of 10/10. MEDICAL/SURGICAL HISTORY: HIV. Deep venous thrombosis. Lumbar spine abscess Appendectomy. ORAL CONTRAST: No oral contrast ingested. RADIATION DOSE: 19.50 CTDI (mGy) ; Combined studies COMPARISON: No prior exams available for comparison. TECHNIQUE: Multiple contiguous axial images were obtained through the abdomen and pelvis following b olus infusion of 99ML ml Omnipaque 350 (iohexol) nonionic water-soluble contrast as a cumulative do se for multiple exams. No oral contrast ingested. Using automated exposure control and adjustment of the mA and/or kV according to patient size, radiation dose was kept as low as reasonably achievable to obtain optimal diagnostic quality images. DICOM format image data is available electronically for review and comparison. FINDINGS: There is subsegmental airspace consolidation at both lung bases most characteristic of pneumonia. Mild periportal edema in the liver. Spleen enlarged to approximately 16.7 cm in length. No acute find ings in the adrenals, kidneys or pancreas. No calcified gallstones. There is no significant free fluid. No free air. No bowel obstruction. CONCLUSION: 1. Subsegmental pneumonia at the lung bases. 2. Splenic enlargement. Mild periportal edema in the liver. Previous appendectomy. Electronically signed by: Greg Ellis MD Board Certified Radiologist 06/27/2018 10:22 PM EST
[2018-06-27] MEDS: Sod Chloride 0.9% Inj 1,000 ML IV.CONT SCH (22:25)
[2018-06-27] MEDS: Senna/Docusate Sodium 8.6/50 MG Tablet PO SCH (23:04)
[2018-06-27] MEDS: Famotidine PF Inj 20 MG/2 ML Vial IV.PUSH SCH (23:04)
[2018-06-28] MEDS ORDERED: Vancomycin Inj 1,000 MG in Sodium Chlor 0.9% Inj 250 ML IV.SIG ONE ×2
[2018-06-28] MEDS ORDERED: Heparin - SQ 10,000 UNITS/ML Vial SQ ONE (00:54)
[2018-06-28] MEDS: Morphine Inj 4 MG/ML Vial IV.PUSH PRN ×5 (02:50→21:01)
[2018-06-28] MEDS: Sod Chloride 0.9% Inj 1,000 ML IV.CONT SCH (03:40)
[2018-06-28] MEDS ORDERED: Chlorhexidine Gluconate 2% 1 Pack (2 Cloths) TOPICAL PRN (04:00)
[2018-06-28] MEDS: Piperacil/Tazo 4.5 GM Premix 4.5 GM/100 ML BAG IV.SIG SCH ×4 (04:02→21:01)
[2018-06-28 04:06] LABS: Hematocrit 36.9 % (39.0-51.0); Hemoglobin 12.5 gm/dL (13.0-17.0); Mean Corpuscular HGB Conc 33.8 % (32.0-36.0); Mean Corpuscular Volume 91.8 fL (80.0-100.0); Mean Platelet Volume 7.7 fL (7.0-11.0); Platelet Count 309 th/mm3 (150-450); Red Blood Count 4.02 mil/mm3 (4.50-5.90); Red Cell Distribution Width 14.7 % (11.6-17.2); White Blood Count 21.7 th/mm3 (4.0-11.0)
[2018-06-28 04:15] LABS: Activated Partial Thrombo Time 34.1 sec (23.4-31.7); INR 1.2 Ratio; Prothrombin Time 11.7 sec (9.8-11.6)
[2018-06-28 04:38] LABS: Alanine Aminotransferase 18 U/L (12-78); Albumin 2.1 g/dL (3.4-5.0); Alkaline Phosphatase 182 U/L (45-117); Anion Gap 5 meq/L (5-15); Aspartate Aminotransferase 17 U/L (15-37); Blood Urea Nitrogen 27 mg/dL (7-18); Carbon Dioxide 31.2 meq/L (21.0-32.0); Chloride 99 meq/L (98-107); Glomerular Filtration Rate Greater Than 89 mL/min (>89); Glucose,Random 98 mg/dL (74-106); Magnesium 2.8 mg/dL (1.5-2.5); Phosphorus 3.3 mg/dL (2.5-4.9); Sodium 135 meq/L (136-145)
[2018-06-28 04:49] LABS: Erythrocyte Sedimentation Rate 25 mm/hr (0-15)
[2018-06-28] MEDS: Chlorhexidine Gluconate 2% 1 Pack (2 Cloths) TOPICAL SCH (05:00)
[2018-06-28 05:03] LABS: Dohle Bodies Present; Lymphocytes 2 % (9-44); Monocytes 5 % (0-8); Platelet Estimate Normal (Normal); Platelet Morphology Normal (Normal); Toxic Granulation 1+; Toxic Vacuolation Present
[2018-06-28] MEDS: Famotidine PF Inj 20 MG/2 ML Vial IV.PUSH SCH ×2 (08:12→21:00)
[2018-06-28] MEDS: Senna/Docusate Sodium 8.6/50 MG Tablet PO SCH ×2 (08:13→21:01)
--- NOTE | 2018-06-28 09:37 | P.PNNS ---
Subjective Interval history: I was asked by Dr. Blackmon ( ED attending) to see and evaluate 27-year-old male who presents to the emergency room with complaints of low back pain as well as possible access in the right axillary region. He also has notable swelling of the veins in his right arm. Patient was seen yesterday at [facility] for low back pain. Patient states he had an x-ray done as well as a CT which were reportedly negative. Presents today very concerned about the swelling in his arm. As well as his back. Denies any saddle anesthesia, bowel or bladder incontinence. No lower extremity weakness, numbness, or tingling. The patient states he was clean from IV drug use for 6 months until approximately a week ago. His CD4 count in February was 1000 but then a repeat done in March was 26. No complaints of abdominal pain, nausea, vomiting, upper respiratory symptoms, SOB. Patient was also found to have a DVT in the right subclavian vein. 06/28/2018 No events overnight ESR -25, CRP 27 LBP a little better this morning Physical Exam Vital signs: Vital Signs 06/27/18 11:44 06/27/18 20:46 06/27/18 22:18 Temperature 97.9 F 101.5 F H Pulse Rate 87 78 84 Respiratory Rate 18 15 20 Blood Pressure 129/64 124/68 116/59 L Pulse Oximetry 98 96 90 L 06/27/18 23:00 06/27/18 23:02 06/27/18 23:44 Temperature Pulse Rate 89 88 93 H Respiratory Rate 21 19 26 H Blood Pressure 108/55 L 113/55 L Pulse Oximetry 92 L 92 L 93 L 06/28/18 00:00 06/28/18 00:44 06/28/18 01:00 Temperature 99.7 F H Pulse Rate 82 79 80 Respiratory Rate 15 19 18 Blood Pressure 110/55 L Pulse Oximetry 92 L 98 98 06/28/18 01:44 06/28/18 02:00 06/28/18 02:44 Temperature 99.1 F Pulse Rate 73 72 66 Respiratory Rate 19 21 20 Blood Pressure 110/56 L 106/63 Pulse Oximetry 99 98 98 06/28/18 03:00 06/28/18 03:06 06/28/18 03:44 Temperature 97.9 F Pulse Rate 62 64 63 Respiratory Rate 17 24 16 Blood Pressure 107/57 L 108/55 L Pulse Oximetry 97 98 98 06/28/18 04:00 06/28/18 04:44 06/28/18 05:00 Temperature 97.9 F Pulse Rate 63 69 71 Respiratory Rate 24 21 39 H Blood Pressure 109/63 Pulse Oximetry 97 98 99 06/28/18 05:44 06/28/18 06:00 06/28/18 06:44 Temperature Pulse Rate 61 64 63 Respiratory Rate 18 21 24 Blood Pressure 107/64 110/68 Pulse Oximetry 100 99 97 06/28/18 07:00 06/28/18 07:44 06/28/18 08:00 Temperature 98.6 F Pulse Rate 60 78 65 Respiratory Rate 20 26 H 25 H Blood Pressure 111/68 Pulse Oximetry 100 100 100 Intake & Output 06/27/18 06/28/18 06/28/18 18:59 06:59 18:59 Intake Total 1650 / 1650 800 / 800 Output Total 1210 / 1210 Balance 440 / 440 800 / 800 Weight 70.307 kg 71.3 kg Intake: IV 1650 / 1650 800 / 800 NS Inj 1,000 ML @ 150 mls/hr IV 800 / 800 .CONT .Q6H40M JAYLYN Rx#:[id number] Zosyn 3.375 GM Premix 3.375 gm 50 / 50 In 50 ml @ 100 mls/hr IV.SIG ONCE ONE Rx#:[id number] Zosyn 4.5 GM Premix 4.5 gm In 100 / 100 100 ml @ 200 mls/hr IV.SIG Q6H JAYLYN Rx#:[id number] NS Inj 1,000 ML @ 1000 mls/hr 1000 / 1000 IV.SIG BOLUS JAYLYN Rx#:[id number] Vancomycin Inj 1,000 MG In NS 500 / 500 Inj 250 ML @ 250 mls/hr IV.SIG ONCE ONE Rx#:[id number] Output: Urine 1210 / 1210 Other: Date of Last Bowel Movement 06/27/18 Weight On Admission 70.3 kg - Constitutional mild distress Comments: uncomfortable due to LBP - Routine HEENT Exam Head: Present: normocephalic, atraumatic Eye: Present: EOMI, PERRL, normal accommodation ENT: Present: mucous membranes moist, oropharynx clear, nares patent, external ear normal, TM's clear bilaterally - Routine Neck Exam Present: supple, full ROM - Routine Respiratory Exam Present: CTA bilaterally - Routine Cardiovascular Exam Present: RRR - Routine Abdominal Exam Present: soft, normoactive bowel sounds - Routine Extremities Exam Present: full ROM, pulses intact, normal capillary refill - Routine Skin Exam Present: intact, warm, normal turgor - Routine Neurological Exam Present: alert, oriented X3, CN II-XII intact, normal reflexes, moving all extremities, normal tone, vision grossly intact, hearing grossly intact, normal speech - Detailed Neurological Exam: Coma Scale Eye Opening: Spontaneous Verbal Response: Oriented Motor Response: Obey commands [place] Coma Scale Total: 15 - Routine Psychiatric Exam Present: normal affect, normal thought process, cooperative Assessment and Plan - Plan 27 yo male IVDA with acute onset of LBP. Lumbar spine MRI suspicious for ventral epidural abscess and WBC 25K. Pain controlled Neurochecks q4hr ESR- 25 and CRP- 27 Bld.Cx's IR consult to biopsy Lumbar epidural space if patient does not improve with current Abx therapy ID Consult Regular diet OK to administer prophylactic but not therapeutic anticoagulation for DVT in view of epidural abscess and possible need for IR biopsy. Morphine/Percocet as needed for pain. Will follow
--- NOTE | 2018-06-28 09:42 | P.CONID ---
History of Present Illness Service: Infectious disease Consult date: 06/28/18 Requesting Physician: David Acosta Reason for Consult: Evaluate patient with sepsis, epidural abscess Primary Care Provider: UNKNOWN Chief Complaint: Low back pain History of Present Illness: Patient seen and examined. Records reviewed. Patient is a 27-year-old male, with known HIV, and IV drug use, presented to the hospital complaining of low back pain. Patient stated he was sick with some fevers and body aches around [place] time. He did not seek any medical help and he got better. He started getting sick again June 24 with fevers, and he started having back pain. He was also complaining of pain in his right upper extremity, and felt like his veins are inflamed. He reportedly went to [facility] and evaluation at that time was unremarkable. His symptoms were not improving, and he also started having pain on the right side of his chest. He denies any cough. There is been no nausea or vomiting. No diarrhea or any urinary complaints. He has not noted any weakness in his lower extremity, or any bowel or bladder incontinence. Since presentation he has been documented to be febrile up to 101.5. His WBC is elevated. Sed rate is 25, C-reactive protein 27. Toxicology (+) opiates, amphetamines and cpcaine. MRI of the lumbosacral spine showing findings suggestive of epidural abscess at L5-S1. He also has DVT in the right subclavian and axillary vein. CTA of the chest did not show any pulmonary embolism, but there is a nodule in the right lower lobe, as well as scattered infiltrates in the lower bases. CT of the abdomen and pelvis is showing splenic enlargement. 2 blood cultures done on admission are now reported as growing gram-positive cocci in pairs and chains. He is currently on Vanco, and Zosyn. Patient has known active IV drug use, and has been using drugs for the last 1 year. Infectious disease consultation has been requested to assist with evaluation and treatment. Review of Systems Constitutional: Reports body ache(s), Reports chills, Reports fever(s), Reports night sweats, Denies headache(s) Eyes: Denies discharge, Denies dry eyes Ears, Nose, Mouth, and Throat: Denies dental pain, Denies difficulty swallowing , Denies ear pain, Denies facial pain, Denies mouth pain, Denies nasal congestion, Denies nasal discharge, Denies neck pain, Denies sore throat Cardiovascular: Reports chest pain, Denies chest pain at rest, Denies chest pain with activity, Denies leg swelling, Denies shortness of breath Respiratory: Denies chest congestion, Denies cough, Denies shortness of breath Gastrointestinal: Reports abdominal pain, Denies difficulty swallowing, Denies incontinent of stools, Denies loose stools, Denies nausea, Denies pain with swallowing, Denies vomiting Genitourinary: Denies difficulty urinating, Denies painful urination Musculoskeletal: Reports back pain, Reports body aches, Denies joint pain, Denies joint swelling, Denies neck pain Skin/Breast: Reports sores Neurologic: Denies headache(s), Denies localized weakness, Denies tingling/ numbness/burning sensations PMFSH - History History Provided By: Patient - Medical History Medical History: Medical History (Last Reviewed 06/28/18 @ 09:34 by Michelle Onofre MD) HIV (human immunodeficiency virus infection) - Surgical History Surgical History: Surgical History (Last Reviewed 06/28/18 @ 09:34 by Michelle Onofre MD) History of appendectomy - Tobacco History Second Hand Smoke Exposure: Yes Tobacco Use In Past 30 Days: Yes Smoking Status: Current every day smoker Tobacco Type: Cigarettes - Alcohol History How Often Do You Have a Drink Containing Alcohol: Monthly or less - Substance Use History Substance History: Active Abuse - Substance Use Type Heroin Status: Active Route Used: Intravenously Frequency: a gram and a half daily Reason for Use: Get High Methamphetamine Status: Active Route Used: Intravenously Frequency: Rarely used Last Used: Today Reason for Use: Get High Comment: Rarely uses, prefers opiate usage dasily. Opiates Type: Fentyl Status: Active Route Used: Intravenously Frequency: daily Reason for Use: Feels Good - Travel History Recent Travel in the [place] Within the Last 8 Weeks: No Recent Travel Out of the Country Within the Last 8 Weeks: No - Immunization History Tetanus Immunization: <5 Years Medications and Allergies Active Medications: Active Medications Acetaminophen (Tylenol) 650 mg PO Q6H PRN PRN Reason: PAIN 1-10 AND/OR FEVER >101F Last Admin: 06/28/18 00:34 Dose: 650 mg Al Hydroxide/Mg Hydroxide (Milk Of Magnesia Liq) 30 ml PO Q12H PRN PRN Reason: Mild Constipation Albuterol (Duoneb Neb (Prn)) 1 ampul NEB Q2HR NEB PRN PRN Reason: WHEEZING Bisacodyl (Dulcolax Supp) 10 mg RECTAL DAILY PRN PRN Reason: SEVERE CONSITIPATION Chlorhexidine Gluconate (Chlorhexidine 2% Cloth) 3 pack TOPICAL DAILY@0400 JAYLYN Stop: 07/03/18 03:59 Last Admin: 06/28/18 05:00 Dose: 3 pack Chlorhexidine Gluconate (Chlorhexidine 2% Cloth) 3 pack TOPICAL DAILY@0400 PRN PRN Reason: Extra cloth needed Stop: 07/03/18 03:59 Famotidine (Pepcid Pf Inj) 20 mg IV.PUSH Q12HR [facility] Last Admin: 06/28/18 08:12 Dose: 20 mg Sodium Chloride (Ns Inj) 1,000 mls @ 150 mls/hr IV.CONT .Q6H40M [facility] Last Infusion: 06/28/18 07:47 Dose: 150 mls/hr Piperacillin/Tazobactam/Dextrose (Zosyn 4.5 Gm Premix) 4.5 gm in 100 mls @ 200 mls/hr IV.SIG Q6H [facility] Last Infusion: 06/28/18 04:35 Dose: Infused Vancomycin HCl 1,000 mg/ (Sodium Chloride) 250 mls @ 250 mls/hr IV.SIG Q8H JAYLYN Lactulose (Lactulose Liq) 30 ml PO DAILY PRN PRN Reason: SEVERE CONSITIPATION Miscellaneous Information ([facility] Ordered Lab Info) 1 each OTHER ONCE ONE Stop: 06/29/18 00:46 Morphine Sulfate (Morphine Inj) 4 mg IV.PUSH Q4H PRN PRN Reason: PAIN SCALE 6 TO 10 Last Admin: 06/28/18 08:13 Dose: 4 mg Ondansetron HCl (Zofran Inj) 4 mg IV.PUSH Q6H PRN PRN Reason: NAUSEA OR VOMITING Oxycodone/Acetaminophen (Percocet 5/325 Mg) 2 tab PO Q4H PRN PRN Reason: PAIN SCALE 1 TO 5 Pharmacy Profile Note (Vancomycin Consult Pharmacy) 1 each OTHER UNSCH PRN PRN Reason: Pharmacy to dose Senna/Docusate Sodium (Hayley-Colace) 1 tab PO BID [facility] Last Admin: 06/28/18 08:13 Dose: Not Given Sennosides (Senokot) 17.2 mg PO Q12H PRN PRN Reason: Moderate Constipation Sodium Chloride (Ns Flush) 2 ml IV.FLUSH BID [facility] Last Admin: 06/28/18 08:12 Dose: 2 ml Sodium Chloride (Ns Flush) 2 ml IV.FLUSH PRN PRN PRN Reason: FLUSH AFTER USING IV ACCESS Allergies Allergy/AdvReac Type Severity Reaction Status Date / Time haloperidol Allergy Severe Muscle Pain Unverified 06/27/18 15:10 Home Medications Medication Instructions Recorded Confirmed Type [id number] ala 1 tab PO DAILY 06/27/18 06/27/18 History [Odefsey] Exam Vital signs: Vital Signs 06/27/18 11:44 06/27/18 20:46 06/27/18 22:18 Temperature 97.9 F 101.5 F H Pulse Rate 87 78 84 Respiratory Rate 18 15 20 Blood Pressure 129/64 124/68 116/59 L Pulse Oximetry 98 96 90 L 06/27/18 23:00 06/27/18 23:02 06/27/18 23:44 Temperature Pulse Rate 89 88 93 H Respiratory Rate 21 19 26 H Blood Pressure 108/55 L 113/55 L Pulse Oximetry 92 L 92 L 93 L 06/28/18 00:00 06/28/18 00:44 06/28/18 01:00 Temperature 99.7 F H Pulse Rate 82 79 80 Respiratory Rate 15 19 18 Blood Pressure 110/55 L Pulse Oximetry 92 L 98 98 06/28/18 01:44 06/28/18 02:00 06/28/18 02:44 Temperature 99.1 F Pulse Rate 73 72 66 Respiratory Rate 19 21 20 Blood Pressure 110/56 L 106/63 Pulse Oximetry 99 98 98 06/28/18 03:00 06/28/18 03:06 06/28/18 03:44 Temperature 97.9 F Pulse Rate 62 64 63 Respiratory Rate 17 24 16 Blood Pressure 107/57 L 108/55 L Pulse Oximetry 97 98 98 06/28/18 04:00 06/28/18 04:44 06/28/18 05:00 Temperature 97.9 F Pulse Rate 63 69 71 Respiratory Rate 24 21 39 H Blood Pressure 109/63 Pulse Oximetry 97 98 99 06/28/18 05:44 06/28/18 06:00 06/28/18 06:44 Temperature Pulse Rate 61 64 63 Respiratory Rate 18 21 24 Blood Pressure 107/64 110/68 Pulse Oximetry 100 99 97 06/28/18 07:00 06/28/18 07:44 06/28/18 08:00 Temperature 98.6 F Pulse Rate 60 78 65 Respiratory Rate 20 26 H 25 H Blood Pressure 111/68 Pulse Oximetry 100 100 100 Intake & Output 06/27/18 06/28/18 06/28/18 18:59 06:59 18:59 Intake Total 1650 / 1650 800 / 800 Output Total 1210 / 1210 Balance 440 / 440 800 / 800 Weight 70.307 kg 71.3 kg Intake: IV 1650 / 1650 800 / 800 NS Inj 1,000 ML @ 150 mls/hr IV 800 / 800 .CONT .Q6H40M JAYLYN Rx#:[id number] Zosyn 3.375 GM Premix 3.375 gm 50 / 50 In 50 ml @ 100 mls/hr IV.SIG ONCE ONE Rx#:[id number] Zosyn 4.5 GM Premix 4.5 gm In 100 / 100 100 ml @ 200 mls/hr IV.SIG Q6H JAYLYN Rx#:[id number] NS Inj 1,000 ML @ 1000 mls/hr 1000 / 1000 IV.SIG BOLUS JAYLYN Rx#:[id number] Vancomycin Inj 1,000 MG In NS 500 / 500 Inj 250 ML @ 250 mls/hr IV.SIG ONCE ONE Rx#:[id number] Output: Urine 1210 / 1210 Other: Date of Last Bowel Movement 06/27/18 Weight On Admission 70.3 kg Narrative: Physical examination GENERAL: Patient is a well-nourished, well-developed young male, awake and alert, not in respiratory distress. In pain when he moves and he complaints mostly of pain in his rib cage on R and L side of lower back SKIN: Warm and dry. Has scattered dry wounds both UE nad LE. No ecchymoses and no evidence of embolic lesions. HEAD: Atraumatic. Normocephalic. No temporal wasting, or tenderness. EYES: [place] conjunctiva. No petechia or hemorrhage. Pupils equal, round and reactive to light. Extraocular movements full and intact. No scleral icterus. No injection or drainage. EARS, NOSE AND THROAT: Nose without bleeding or purulent nasal discharge. No sinus tenderness. Mucous membranes pink and moist. No oral lesions noted. No exudate. No oral thrush. NECK: Trachea midline. Supple and not tender, no meningeal signs CARDIOVASCULAR: Regular rate and rhythm. No murmurs, rubs or gallops heard RESPIRATORY: Clear to auscultation. Breath sounds equal bilaterally. No rales , wheezing or rhonchi. Significant pain on palpation of his rib cage on the R side ABDOMEN: Soft, flat, nondistended, with significant tenderness leonarda palpation in the RUQ. Bowel sounds present and normoactive. No guarding. No rebound. EXTREMITIES: No clubbing, cyanosis, or edema in BLE. L hand mildly swollen, good ROM all fingers and wrist. No joint effusion, has good ROM. No calf tenderness. Well perfused and warm. NEUROLOGICAL: Awake and alert. Cranial nerves grossly intact. Motor grossly within normal limits. PSYCHIATRIC: Normal affect, calm and cooperative. LINE: No evidence of infection Results - Labs CBC & Chem 7: 06/28/18 03:51 06/28/18 03:51 Labs: Laboratory Results - last 24 hr 06/27/18 06/27/18 06/27/18 16:00 16:00 16:00 WBC 25.2 H RBC 4.35 L Hgb 13.7 Hct 40.4 MCV 92.9 MCH 31.4 MCHC 33.8 RDW 14.8 Plt Count 320 MPV 8.0 Prelim Diff (Auto) Neut % (Auto) 82.2 H Lymph % (Auto) 8.8 L [place] % (Auto) 7.3 Eos % (Auto) 1.1 Baso % (Auto) 0.6 Neut # (Auto) 20.7 H Lymph # (Auto) 2.2 [place] # (Auto) 1.8 H Eos # (Auto) 0.3 Baso # (Auto) 0.2 WBC Differential . Seg Neuts % (Manual) Band Neuts % (Manual) Lymphocytes % (Manual) Monocytes % (Manual) Abs Neuts (Manual) Differential Comment Auto diff final Toxic Granulation Toxic Vacuolation Dohle Bodies Platelet Estimate Platelet Morphology ESR PT INR APTT Sodium 133 L Potassium 4.9 Chloride 95 L Carbon Dioxide 30.8 Anion Gap 7 BUN 42 H Creatinine 1.49 H Estimated GFR 57 L Random Glucose 102 Lactic Acid Calcium 8.4 L Phosphorus Magnesium Total Bilirubin 0.6 AST 45 H ALT 24 Alkaline Phosphatase 257 H C-Reactive Protein 27.00 H Total Protein 8.4 H Albumin 2.6 L Urine Color Urine Clarity Urine pH Ur Specific [place] Urine Protein Urine Glucose (UA) Urine Ketones Urine Occult Blood Urine Nitrate Urine Bilirubin Urine Urobilinogen Ur Leukocyte Esterase Urine WBC Hyaline Casts Granular Casts Micro UA Comment Ur Microscopic Review Urine Culture Comments Nasal Screen MRSA (PCR) Urine Opiates Screen Ur Barbiturates Screen Ur Amphetamines Screen U Benzodiazepines Scrn Urine Cocaine Screen U Cannabinoids Screen 06/27/18 06/27/18 06/27/18 16:30 17:20 17:20 WBC RBC Hgb Hct MCV MCH MCHC RDW Plt Count MPV Prelim Diff (Auto) Neut % (Auto) Lymph % (Auto) [place] % (Auto) Eos % (Auto) Baso % (Auto) Neut # (Auto) Lymph # (Auto) [place] # (Auto) Eos # (Auto) Baso # (Auto) WBC Differential Seg Neuts % (Manual) Band Neuts % (Manual) Lymphocytes % (Manual) Monocytes % (Manual) Abs Neuts (Manual) Differential Comment Toxic Granulation Toxic Vacuolation Dohle Bodies Platelet Estimate Platelet Morphology ESR PT INR APTT Sodium Potassium Chloride Carbon Dioxide Anion Gap BUN Creatinine Estimated GFR Random Glucose Lactic Acid 1.0 Calcium Phosphorus Magnesium Total Bilirubin AST ALT Alkaline Phosphatase C-Reactive Protein Total Protein Albumin Urine Color Yellow Urine Clarity Cloudy H Urine pH 5.0 Ur Specific [place] 1.021 Urine Protein 100 H Urine Glucose (UA) Negative Urine Ketones Negative Urine Occult Blood Negative Urine Nitrate Negative Urine Bilirubin Negative Urine Urobilinogen 2.0 H Ur Leukocyte Esterase Negative Urine WBC 4 Hyaline Casts 8 Granular Casts 14 Micro UA Comment Culture not ind Ur Microscopic Review Not Reportable Urine Culture Comments Culture not ind Nasal Screen MRSA (PCR) Urine Opiates Screen Pos H Ur Barbiturates Screen Neg Ur Amphetamines Screen Pos H U Benzodiazepines Scrn Neg Urine Cocaine Screen Pos H U Cannabinoids Screen Neg 06/27/18 06/28/18 06/28/18 22:15 03:51 03:51 WBC 21.7 H RBC 4.02 L Hgb 12.5 L Hct 36.9 L MCV 91.8 MCH 31.0 MCHC 33.8 RDW 14.7 Plt Count 309 MPV 7.7 Prelim Diff (Auto) Manual diff required Neut % (Auto) Lymph % (Auto) [place] % (Auto) Eos % (Auto) Baso % (Auto) Neut # (Auto) Lymph # (Auto) [place] # (Auto) Eos # (Auto) Baso # (Auto) WBC Differential Manual diff final Seg Neuts % (Manual) 53 Band Neuts % (Manual) 40 H Lymphocytes % (Manual) 2 L Monocytes % (Manual) 5 Abs Neuts (Manual) 20.2 H Differential Comment . Toxic Granulation 1+ H Toxic Vacuolation Present H Dohle Bodies Present H Platelet Estimate Normal Platelet Morphology Normal ESR 25 H PT 11.7 H INR 1.2 APTT 34.1 H Sodium Potassium Chloride Carbon Dioxide Anion Gap BUN Creatinine Estimated GFR Random Glucose Lactic Acid Calcium Phosphorus Magnesium Total Bilirubin AST ALT Alkaline Phosphatase C-Reactive Protein Total Protein Albumin Urine Color Urine Clarity Urine pH Ur Specific [place] Urine Protein Urine Glucose (UA) Urine Ketones Urine Occult Blood Urine Nitrate Urine Bilirubin Urine Urobilinogen Ur Leukocyte Esterase Urine WBC Hyaline Casts Granular Casts Micro UA Comment Ur Microscopic Review Urine Culture Comments Nasal Screen MRSA (PCR) Mrsa detected Urine Opiates Screen Ur Barbiturates Screen Ur Amphetamines Screen U Benzodiazepines Scrn Urine Cocaine Screen U Cannabinoids Screen 06/28/18 06/28/18 03:51 03:51 WBC RBC Hgb Hct MCV MCH MCHC RDW Plt Count MPV Prelim Diff (Auto) Neut % (Auto) Lymph % (Auto) [place] % (Auto) Eos % (Auto) Baso % (Auto) Neut # (Auto) Lymph # (Auto) [place] # (Auto) Eos # (Auto) Baso # (Auto) WBC Differential Seg Neuts % (Manual) Band Neuts % (Manual) Lymphocytes % (Manual) Monocytes % (Manual) Abs Neuts (Manual) Differential Comment Toxic Granulation Toxic Vacuolation Dohle Bodies Platelet Estimate Platelet Morphology ESR PT INR APTT Sodium 135 L Potassium 4.0 D Chloride 99 Carbon Dioxide 31.2 Anion Gap 5 BUN 27 H Creatinine 0.89 Estimated GFR Greater than 89 Random Glucose 98 Lactic Acid 0.7 Calcium 8.0 L Phosphorus 3.3 Magnesium 2.8 H Total Bilirubin 0.4 AST 17 ALT 18 Alkaline Phosphatase 182 H C-Reactive Protein Total Protein 7.0 D Albumin 2.1 L Urine Color Urine Clarity Urine pH Ur Specific [place] Urine Protein Urine Glucose (UA) Urine Ketones Urine Occult Blood Urine Nitrate Urine Bilirubin Urine Urobilinogen Ur Leukocyte Esterase Urine WBC Hyaline Casts Granular Casts Micro UA Comment Ur Microscopic Review Urine Culture Comments Nasal Screen MRSA (PCR) Urine Opiates Screen Ur Barbiturates Screen Ur Amphetamines Screen U Benzodiazepines Scrn Urine Cocaine Screen U Cannabinoids Screen - Imaging Impressions Abdomen/Pelvis CT 06/27/18 00:00 CONCLUSION: 1. Subsegmental pneumonia at the lung bases. 2. Splenic enlargement. Mild periportal edema in the liver. Previous appendectomy. Chest CTA 06/27/18 00:00 CONCLUSION: 1. Negative for pulmonary embolus. 2. Cavitary nodule superior segment right lower lobe measuring 2.1 cm. Patchy airspace consolidation in both lower lobes most characteristic of bronchopneumonia. Trace pleural fluid. Venous Doppler Study 06/27/18 15:53 CONCLUSION: 1. There is occlusive deep venous thrombosis in the right subclavian and axillary veins. Lumbar Spine MRI 06/27/18 17:39 CONCLUSION: Abnormal mixed signal intensity epidural fluid collection in the anterior extradural space from L5 down to mid body of S1 causing moderate to severe thecal sac stenosis L5-S1 highly suspicious for epidural abscess in the appropriate clinical setting. Assessment and Plan - Plan Impression Sepsis with GPC in chains c/w Strep, very suspicious that he has IE due to his avtive IVDU L5Si epidural abscess, hematogenous seeding Alexei infiltrates, no PNA symptoms, possibly septic emboli (though CT not the typical findings) IVDU HIV on HAART Recommendations Repeat BC to document clearing Agree with echo Check CD4 counts Continue his HIV meds Continue vanco and Zosyn for now Echo Follow C/S and adjust Abx Neurosurgery following - ?if location of abscess amenable for sampling I will follow along with you Thank you for this consultation
[2018-06-28] MEDS: Vancomycin Inj 1,000 MG in Sodium Chlor 0.9% Inj 250 ML IV.SIG SCH ×2 (09:55→16:55)
--- NOTE | 2018-06-28 11:42 | MB ---
cc: Gurvinder Niño MD DATE: 06/28/2018 REASON FOR CONSULTATION: Transesophageal echocardiogram. HISTORY OF PRESENT ILLNESS: The patient is a pleasant 27-year-old patient who abuses IV heroin and who presented with low back pain and fevers as well as an elevated white count. Blood cultures have been positive for gram-positive cocci. I have been asked to perform a transesophageal echocardiogram to exclude endocarditis. PAST MEDICAL HISTORY: HIV, IVDU. CURRENT MEDICATIONS: Zosyn. ALLERGIES: HALDOL. PHYSICAL EXAMINATION: VITAL SIGNS: Temperature 98.6, down from 99, respiratory rate 20, heart rate 65, saturating 96% on room air. GENERAL: Pleasant gentleman in no distress. NECK: No JVD. LUNGS: Clear to auscultation bilaterally. CARDIOVASCULAR: Regular rate and rhythm. No significant murmurs appreciated. ABDOMEN: Benign. EXTREMITIES: No edema. LABORATORY DATA: White count 21, hematocrit 36.9, platelets 309. Sodium 135, potassium 4.0, chloride 99, bicarbonate 31.2, BUN 27, creatinine 0.89. Micro is positive for gram-positive cocci. IMPRESSION: Bacteremia. The patient with known intravenous drug use and concern for septic embolism, has bacteremia and I have been requested to do a transesophageal echocardiogram. I have canceled his transthoracic echo as I do believe this will be redundant. I will have him undergo a transesophageal echocardiogram tomorrow to which he agrees. He will be kept n.p.o. past midnight. Thank you for the opportunity to participate in this patient's care. Gurvinder Niño MD HANY/ct , 11:11 AM , 11:17 AM
--- NOTE | 2018-06-28 13:33 | P.PNCC ---
Subjective Subjective Remarks/Hospital Course: 27-year-old male with a medical history significant for HIV, IV drug abuse who presented with a history of low back pain that started a few days ago along with swelling noted in his right axillary region with prominence of his veins in the right upper extremity. He was evaluated at [facility] for low back pain underwent x-ray and CT scan which was reported negative and he was discharged he reportedly has been having of patient came back to the ER with worsening low back pain today however without any bowel or bladder incontinence or lower extremity weakness. He has been having high-grade fever up to 105 degrees over the last 3-4 days. He last used IV heroin last night. Patient stated that his CD4 count in February was 1000 however repeat that in March was 26. He has been on antiretroviral therapy. He also complains of right-sided chest pain with some difficulty with his breathing. Patient underwent MRI lumbosacral spine which revealed enhancement in L5-S1 region highly suspicious for epidural abscess. Patient was also found to have a DVT in the right subclavian vein. Stat neurosurgery consult was requested by ER and case discussed with Dr. Han for epidural abscess. Patient was accepted for admission by critical care medicine service with consult to neurosurgery. When I evaluated the patient he was laying in the ER stretcher. He complains of pain all over. He is requesting pain medications. He wishes to eat. 06/28: Complains of pleuritic chest pain right side. Pulmonary parenchymal lesion continuous with parietal pleura, undoubtedly painful. Infectious disease workup in progress. Objective Vital Signs / I&O: Vital Signs 06/27/18 20:46 06/27/18 22:18 06/27/18 23:00 Temperature 101.5 F H Pulse Rate 78 84 89 Respiratory Rate 15 20 21 Blood Pressure 124/68 116/59 L Pulse Oximetry 96 90 L 92 L 06/27/18 23:02 06/27/18 23:44 06/28/18 00:00 Temperature 99.7 F H Pulse Rate 88 93 H 82 Respiratory Rate 19 26 H 15 Blood Pressure 108/55 L 113/55 L Pulse Oximetry 92 L 93 L 92 L 06/28/18 00:44 06/28/18 01:00 06/28/18 01:44 Temperature Pulse Rate 79 80 73 Respiratory Rate 19 18 19 Blood Pressure 110/55 L 110/56 L Pulse Oximetry 98 98 99 06/28/18 02:00 06/28/18 02:44 06/28/18 03:00 Temperature 99.1 F Pulse Rate 72 66 62 Respiratory Rate 21 20 17 Blood Pressure 106/63 Pulse Oximetry 98 98 97 06/28/18 03:06 06/28/18 03:44 06/28/18 04:00 Temperature 97.9 F 97.9 F Pulse Rate 64 63 63 Respiratory Rate 24 16 24 Blood Pressure 107/57 L 108/55 L Pulse Oximetry 98 98 97 06/28/18 04:44 06/28/18 05:00 06/28/18 05:44 Temperature Pulse Rate 69 71 61 Respiratory Rate 21 39 H 18 Blood Pressure 109/63 107/64 Pulse Oximetry 98 99 100 06/28/18 06:00 06/28/18 06:44 06/28/18 07:00 Temperature Pulse Rate 64 63 60 Respiratory Rate 21 24 20 Blood Pressure 110/68 Pulse Oximetry 99 97 100 06/28/18 07:44 06/28/18 08:00 06/28/18 08:30 Temperature 98.6 F Pulse Rate 78 64 Respiratory Rate 26 H 25 H 20 Blood Pressure 111/68 Pulse Oximetry 100 100 06/28/18 09:00 06/28/18 09:28 06/28/18 09:31 Temperature Pulse Rate 55 L 81 Respiratory Rate 24 29 H Blood Pressure 117/71 120/72 Pulse Oximetry 100 98 96 06/28/18 10:00 06/28/18 10:28 06/28/18 11:00 Temperature Pulse Rate 84 85 85 Respiratory Rate 29 H 32 H 34 H Blood Pressure 122/70 Pulse Oximetry 100 99 100 06/28/18 11:28 06/28/18 12:00 Temperature 100.2 F H Pulse Rate 91 H 91 H Respiratory Rate 32 H 26 H Blood Pressure 127/74 Pulse Oximetry 98 97 Intake & Output 06/27/18 06/28/18 06/28/18 18:59 06:59 18:59 Intake Total 1650 / 1650 1350 / 1350 Output Total 1210 / 1210 Balance 440 / 440 1350 / 1350 Weight 70.307 kg 71.3 kg Intake: IV 1650 / 1650 1350 / 1350 NS Inj 1,000 ML @ 150 mls/hr IV 1000 / 1000 .CONT .Q6H40M [facility] Rx#:[id number] Zosyn 3.375 GM Premix 3.375 gm 50 / 50 In 50 ml @ 100 mls/hr IV.SIG ONCE ONE Rx#:[id number] Zosyn 4.5 GM Premix 4.5 gm In 100 / 100 100 / 100 100 ml @ 200 mls/hr IV.SIG Q6H [facility] Rx#:[id number] NS Inj 1,000 ML @ 1000 mls/hr 1000 / 1000 IV.SIG BOLUS [facility] Rx#:[id number] Vancomycin Inj 1,000 MG In NS 500 / 500 250 / 250 Inj 250 ML @ 250 mls/hr IV.SIG Q8H [facility] Rx#:[id number] Output: Urine 1210 / 1210 Other: Date of Last Bowel Movement 06/27/18 Weight On Admission 70.3 kg Result Diagrams: 06/28/18 03:51 06/28/18 03:51 Objective Remarks: Narrative: HEENT/Neuro: No pallor or icterus, tongue moist, DELMY, Awake alert oriented 3 , moving all 4 extremities though mobility limited secondary to low back pain and chest wall pain. Lumbar region is tender to palpation Neck: Airway widely patent, no obstructive noises. Chest/pulmonary: Excursions limited by pain. Lungs generally clear, no wheezes. Cardiovascular: S1-S2 regular no gallop or murmur GI/abdomen: Soft, nontender, bowel sounds present, no guarding. Extremities: Warm bilaterally, prominence of veins over right upper extremity with swelling noted in right axilla with tenderness. Scarring/track doran over extremities noted. Assessment and Plan - Assessment and Plan Plan: 27-year-old male with: Sepsis L5-S1 epidural abscess/collection Right upper extremity DVT IV drug abuse Suspected endocarditis Suspected pulmonary septic emboli HIV Plan: Neuro: Admit to ICU, neurochecks per protocol. ER consulted neurosurgery stat and has already discussed the case with Dr. Han who will be evaluating patient for suspected epidural abscess at L5-S1. Morphine/Percocet as needed for pain. Cardiovascular: Maintenance IV fluid. Consult cardiology for OLIVIA to evaluate for vegetations in view of suspected endocarditis. Pulmonary: Supplemental O2. Pulmonary arteriogram negative for embolus. GI/liver: Regular diet Renal/: IV hydration, strict intake output, monitor and replete elect lites, follow given creatinine. ID: Follow-up blood cultures. Empiric antibiotic coverage with IV vancomycin/ Zosyn. Neurosurgery to decide further intervention for epidural abscess/ collection. ID consult requested for further sepsis workup/epidural abscess/ HIV. Heme: Follow CBC and coags Endocrine: Watch for hypoglycemia, SSI for glycemic control if needed Prophylaxis: Pepcid/SCDs. No heparin or Lovenox until cleared by neurosurgery in view of epidural abscess/collection. Overall impression: This gentleman is obviously septic from intravenous drug use. The right pulmonary lesion appears to be necrotic. In view of the fact that we have got positive blood cultures growing we can hold off on direct biopsy of the lower back at this point.
[2018-06-29] MEDS ORDERED: Pharmacy Ordered Lab Info OTHER ONE ×2 (00:45→16:45)
[2018-06-29] MEDS: Morphine Inj 4 MG/ML Vial IV.PUSH PRN ×2 (01:22→17:10)
[2018-06-29] MEDS: Vancomycin Inj 1,000 MG in Sodium Chlor 0.9% Inj 250 ML IV.SIG SCH ×3 (01:35→17:08)
[2018-06-29] MEDS: Chlorhexidine Gluconate 2% 1 Pack (2 Cloths) TOPICAL SCH (04:54)
[2018-06-29] MEDS: Piperacil/Tazo 4.5 GM Premix 4.5 GM/100 ML BAG IV.SIG SCH ×2 (04:54→10:44)
[2018-06-29] MEDS ORDERED: Midazolam Inj 5 MG/ML 1 ML Vial IV.PUSH ONE (09:15)
--- NOTE | 2018-06-29 09:35 | P.PNCA ---
Subjective Interval history: Pt did well during OLIVIA (negative for endocarditis), no cardiac complaints. Medications and Allergies Active Medications: Active Medications Acetaminophen (Tylenol) 650 mg PO Q6H PRN PRN Reason: PAIN 1-10 AND/OR FEVER >101F Last Admin: 06/28/18 00:34 Dose: 650 mg Al Hydroxide/Mg Hydroxide (Milk Of Magnesia Liq) 30 ml PO Q12H PRN PRN Reason: Mild Constipation Albuterol (Duoneb Neb (Prn)) 1 ampul NEB Q2HR NEB PRN PRN Reason: WHEEZING Bisacodyl (Dulcolax Supp) 10 mg RECTAL DAILY PRN PRN Reason: SEVERE CONSITIPATION Chlorhexidine Gluconate (Chlorhexidine 2% Cloth) 3 pack TOPICAL DAILY@0400 [facility] Stop: 07/03/18 03:59 Last Admin: 06/29/18 04:54 Dose: 3 pack Chlorhexidine Gluconate (Chlorhexidine 2% Cloth) 3 pack TOPICAL DAILY@0400 PRN PRN Reason: Extra cloth needed Stop: 07/03/18 03:59 Famotidine (Pepcid Pf Inj) 20 mg IV.PUSH Q12HR [facility] Last Admin: 06/28/18 21:00 Dose: 20 mg Piperacillin/Tazobactam/Dextrose (Zosyn 4.5 Gm Premix) 4.5 gm in 100 mls @ 200 mls/hr IV.SIG Q6H [facility] Last Infusion: 06/29/18 05:58 Dose: Infused Vancomycin HCl 1,000 mg/ (Sodium Chloride) 250 mls @ 250 mls/hr IV.SIG Q8H [facility] Last Infusion: 06/29/18 02:35 Dose: Infused Lactulose (Lactulose Liq) 30 ml PO DAILY PRN PRN Reason: SEVERE CONSITIPATION Miscellaneous Information ([facility] Ordered Lab Info) 0 each OTHER ONCE ONE Stop: 06/29/18 16:46 Morphine Sulfate (Morphine Inj) 4 mg IV.PUSH Q4H PRN PRN Reason: PAIN SCALE 6 TO 10 Last Admin: 06/29/18 01:22 Dose: 4 mg Ondansetron HCl (Zofran Inj) 4 mg IV.PUSH Q6H PRN PRN Reason: NAUSEA OR VOMITING Oxycodone/Acetaminophen (Percocet 5/325 Mg) 2 tab PO Q4H PRN PRN Reason: PAIN SCALE 1 TO 5 Pharmacy Profile Note (Vancomycin Consult Pharmacy) 1 each OTHER UNSCH PRN PRN Reason: Pharmacy to dose Senna/Docusate Sodium (Hayley-Colace) 1 tab PO BID [facility] Last Admin: 06/28/18 21:01 Dose: 1 tab Sennosides (Senokot) 17.2 mg PO Q12H PRN PRN Reason: Moderate Constipation Sodium Chloride (Ns Flush) 2 ml IV.FLUSH BID [facility] Last Admin: 06/28/18 21:02 Dose: 2 ml Sodium Chloride (Ns Flush) 2 ml IV.FLUSH PRN PRN PRN Reason: FLUSH AFTER USING IV ACCESS Allergies Allergy/AdvReac Type Severity Reaction Status Date / Time haloperidol Allergy Severe Muscle Pain Unverified 06/27/18 15:10 Home Medications Medication Instructions Recorded Confirmed Type itvirpjbgn-lwzbxdsh-hsesyh ala 1 tab PO DAILY 06/27/18 06/27/18 History [Odefsey] Physical Exam Vital signs: Vital Signs 06/28/18 10:00 06/28/18 10:28 06/28/18 11:00 Temperature Pulse Rate 84 85 85 Respiratory Rate 29 H 32 H 34 H Blood Pressure 122/70 Pulse Oximetry 100 99 100 06/28/18 11:28 06/28/18 12:00 06/28/18 12:28 Temperature 100.2 F H Pulse Rate 91 H 90 87 Respiratory Rate 32 H 26 H 38 H Blood Pressure 127/74 128/72 Pulse Oximetry 98 97 97 06/28/18 13:00 06/28/18 14:00 06/28/18 15:00 Temperature Pulse Rate 97 H 62 92 H Respiratory Rate 42 H 33 H 37 H Blood Pressure Pulse Oximetry 98 99 96 06/28/18 15:32 06/28/18 16:00 06/28/18 17:00 Temperature 99.6 F Pulse Rate 82 60 84 Respiratory Rate 33 H 36 H 44 H Blood Pressure 124/72 Pulse Oximetry 100 93 L 06/28/18 18:00 06/28/18 18:17 06/28/18 19:00 Temperature Pulse Rate 58 L 79 80 Respiratory Rate 38 H 36 H 37 H Blood Pressure 135/80 128/78 Pulse Oximetry 96 99 06/28/18 19:17 06/28/18 19:50 06/28/18 20:00 Temperature 99.2 F Pulse Rate 80 83 Respiratory Rate 34 H 36 H Blood Pressure 132/75 Pulse Oximetry 98 93 L 06/28/18 20:17 06/28/18 21:00 06/28/18 21:17 Temperature Pulse Rate 80 72 56 L Respiratory Rate 20 20 21 Blood Pressure 131/76 136/86 Pulse Oximetry 93 L 06/28/18 22:00 06/28/18 22:17 06/28/18 23:00 Temperature Pulse Rate 53 L 58 L 56 L Respiratory Rate 22 24 39 H Blood Pressure 153/95 H Pulse Oximetry 95 100 99 06/28/18 23:17 06/29/18 00:00 06/29/18 00:17 Temperature Pulse Rate 73 51 L 82 Respiratory Rate 19 21 25 H Blood Pressure 151/84 H 138/80 Pulse Oximetry 95 100 95 06/29/18 01:00 06/29/18 01:17 06/29/18 02:00 Temperature Pulse Rate 46 L 47 L 73 Respiratory Rate 45 H 48 H 39 H Blood Pressure 149/94 H Pulse Oximetry 93 L 98 93 L 06/29/18 02:17 06/29/18 03:00 06/29/18 03:17 Temperature Pulse Rate 48 L 51 L 80 Respiratory Rate 45 H 38 H 43 H Blood Pressure 141/89 H 144/71 H Pulse Oximetry 96 99 96 06/29/18 04:00 06/29/18 04:17 06/29/18 05:00 Temperature Pulse Rate 44 L 45 L 67 Respiratory Rate 45 H 42 H 41 H Blood Pressure 130/83 Pulse Oximetry 96 95 98 06/29/18 05:17 06/29/18 06:00 Temperature Pulse Rate 74 46 L Respiratory Rate 34 H 21 Blood Pressure 114/65 114/65 Pulse Oximetry 95 100 Intake & Output 06/28/18 06/29/18 06/29/18 18:59 06:59 18:59 Intake Total 3200 / 3200 1450 / 1450 Output Total 1400 / 1400 1500 / 1500 Balance 1800 / 1800 -50 / -50 Weight 71.3 kg Intake: IV 1700 / 1700 450 / 450 NS Inj 1,000 ML @ 150 mls/hr IV 1000 / 1000 .CONT .Q6H40M [facility] Rx#:[id number] Zosyn 4.5 GM Premix 4.5 gm In 200 / 200 200 / 200 100 ml @ 200 mls/hr IV.SIG Q6H [facility] Rx#:[id number] Vancomycin Inj 1,000 MG In NS 500 / 500 250 / 250 Inj 250 ML @ 250 mls/hr IV.SIG Q8H [facility] Rx#:[id number] Oral 1500 / 1500 1000 / 1000 Output: Urine 1400 / 1400 1500 / 1500 Other: # Voids 4 3 Date of Last Bowel Movement 06/28/18 06/28/18 # Bowel Movements 1 1 - Constitutional no acute distress - Routine HEENT Exam Head: Present: normocephalic Eye: Present: EOMI ENT: Present: mucous membranes moist - Routine Neck Exam Present: supple. Absent: JVD - Routine Respiratory Exam Present: CTA bilaterally - Routine Cardiovascular Exam Present: RRR - Routine Extremities Exam Absent: edema - Urinary Catheter Management Indwelling Urethral Catheter Cath placed during this visit: no Results 06/28/18 03:51 06/28/18 03:51 Cardiac Enzymes 06/27/18 06/28/18 Range/Units 16:00 03:51 AST 45 H 17 (15-37) U/L Coagulation 06/28/18 Range/Units 03:51 PT 11.7 H (9.8-11.6) sec APTT 34.1 H (23.4-31.7) sec CBC 06/27/18 06/28/18 Range/Units 16:00 03:51 WBC 25.2 H 21.7 H (4.0-11.0) th/mm3 RBC 4.35 L 4.02 L (4.50-5.90) mil/mm3 Hgb 13.7 12.5 L (13.0-17.0) gm/dL Hct 40.4 36.9 L (39.0-51.0) % Plt Count 320 309 (150-450) th/mm3 Neut # (Auto) 20.7 H (1.8-7.7) th/mm3 Lymph # (Auto) 2.2 (1.0-4.8) th/mm3 [place] # (Auto) 1.8 H (0.0-0.9) th/mm3 Eos # (Auto) 0.3 (0.0-0.4) th/mm3 Baso # (Auto) 0.2 (0.0-0.2) th/mm3 Comprehensive Metabolic Panel 06/27/18 06/28/18 Range/Units 16:00 03:51 Sodium 133 L 135 L (136-145) meq/L Potassium 4.9 4.0 D (3.5-5.1) meq/L Chloride 95 L 99 (98-107) meq/L Carbon Dioxide 30.8 31.2 (21.0-32.0) meq/L BUN 42 H 27 H (7-18) mg/dL Creatinine 1.49 H 0.89 (0.60-1.30) mg/dL Calcium 8.4 L 8.0 L (8.5-10.1) mg/dL AST 45 H 17 (15-37) U/L ALT 24 18 (12-78) U/L Alkaline Phosphatase 257 H 182 H (45-117) U/L Total Protein 8.4 H 7.0 D (6.4-8.2) g/dL Albumin 2.6 L 2.1 L (3.4-5.0) g/dL Intake and Output 06/28/18 06/29/18 06/29/18 22:59 06:59 14:59 Intake Total 1950 / 1950 1350 / 1350 Output Total 1400 / 1400 1500 / 1500 Balance 550 / 550 -150 / -150 Intake: IV 450 / 450 350 / 350 Zosyn 4.5 GM Premix 4.5 gm In 200 / 200 100 / 100 100 ml @ 200 mls/hr IV.SIG Q6H [facility] Rx#:[id number] Vancomycin Inj 1,000 MG In NS 250 / 250 250 / 250 Inj 250 ML @ 250 mls/hr IV.SIG Q8H [facility] Rx#:[id number] Oral 1500 / 1500 1000 / 1000 Output: Urine 1400 / 1400 1500 / 1500 Other: # Voids 4 3 Date of Last Bowel Movement 06/28/18 06/28/18 # Bowel Movements 1 1 Weight 71.3 kg - Imaging and Cardiology Imaging: Impressions Abdomen/Pelvis CT 06/27/18 00:00 CONCLUSION: 1. Subsegmental pneumonia at the lung bases. 2. Splenic enlargement. Mild periportal edema in the liver. Previous appendectomy. Chest CTA 06/27/18 00:00 CONCLUSION: 1. Negative for pulmonary embolus. 2. Cavitary nodule superior segment right lower lobe measuring 2.1 cm. Patchy airspace consolidation in both lower lobes most characteristic of bronchopneumonia. Trace pleural fluid. Venous Doppler Study 06/27/18 15:53 CONCLUSION: 1. There is occlusive deep venous thrombosis in the right subclavian and axillary veins. Lumbar Spine MRI 06/27/18 17:39 CONCLUSION: Abnormal mixed signal intensity epidural fluid collection in the anterior extradural space from L5 down to mid body of S1 causing moderate to severe thecal sac stenosis L5-S1 highly suspicious for epidural abscess in the appropriate clinical setting. Assessment and Plan - Assessment (1) Bacteremia Code(s): R78.81 - Bacteremia Status: Acute Plan: OLIVIA negative for endocarditis, good LV and valvular fxn - Plan will sign off at this time, please call with questions.
--- NOTE | 2018-06-29 10:28 | ECHRPT ---
Indication: sepsis endocarditis CONCLUSIONS No evidence for endocarditis, normal LV function. BP: / HR: Rhythm: Technical Quality:Good Medications Complications There were no complications prior to, during or in recovery from the transesophag eal echocardiogram.. Proc. Components FINDINGS LEFT VENTRICLE Normal left ventricular size and wall thickness. The left ventricular systolic function is normal wi th an estimated ejection fraction in the range of 60-65%. Left ventricular diastolic function parameters a re normal. RIGHT VENTRICLE Normal right ventricular size and systolic function. LEFT ATRIUM The left atrial size is normal. RIGHT ATRIUM The right atrial size is normal. ATRIAL APPENDAGES Normal left atrial appendage size with no evidence of thrombus formation. The velocities in the left atrial appendage are normal. ATRIAL SEPTUM Normal atrial septal thickness without atrial level shunting by limited color doppler interrogation. AORTA The aortic root and proximal ascending aorta are not well visualized. MITRAL VALVE Trace mitral valve regurgitation. AORTIC VALVE Trileaflet aortic valve. No aortic valve stenosis or regurgitation. TRICUSPID VALVE There is trace tricuspid valve regurgitation. VESSELS No pulmonary valve regurgitation or stenosis. Gurvinder Niño MD (Electronically Signed) Final Date:29 June 2018 10:26
[2018-06-29] MEDS: Famotidine PF Inj 20 MG/2 ML Vial IV.PUSH SCH ×2 (10:44→22:24)
[2018-06-29] MEDS: Senna/Docusate Sodium 8.6/50 MG Tablet PO SCH ×2 (10:45→22:25)
--- NOTE | 2018-06-29 11:39 | P.PNNS ---
Subjective Interval history: June 29, 2018 The patient has remained stable overnight. His pain has improved. Physical Exam Vital signs: Vital Signs 06/28/18 12:00 06/28/18 12:28 06/28/18 13:00 Temperature 100.2 F H Pulse Rate 90 87 97 H Respiratory Rate 26 H 38 H 42 H Blood Pressure 128/72 Pulse Oximetry 97 97 98 06/28/18 14:00 06/28/18 15:00 06/28/18 15:32 Temperature Pulse Rate 62 92 H 82 Respiratory Rate 33 H 37 H 33 H Blood Pressure 124/72 Pulse Oximetry 99 96 06/28/18 16:00 06/28/18 17:00 06/28/18 18:00 Temperature 99.6 F Pulse Rate 60 84 58 L Respiratory Rate 36 H 44 H 38 H Blood Pressure 135/80 Pulse Oximetry 100 93 L 96 06/28/18 18:17 06/28/18 19:00 06/28/18 19:17 Temperature Pulse Rate 79 80 80 Respiratory Rate 36 H 37 H 34 H Blood Pressure 128/78 132/75 Pulse Oximetry 99 06/28/18 19:50 06/28/18 20:00 06/28/18 20:17 Temperature 99.2 F Pulse Rate 83 80 Respiratory Rate 36 H 20 Blood Pressure 131/76 Pulse Oximetry 98 93 L 06/28/18 21:00 06/28/18 21:17 06/28/18 22:00 Temperature Pulse Rate 72 56 L 53 L Respiratory Rate 20 21 22 Blood Pressure 136/86 Pulse Oximetry 93 L 95 06/28/18 22:17 06/28/18 23:00 06/28/18 23:17 Temperature Pulse Rate 58 L 56 L 73 Respiratory Rate 24 39 H 19 Blood Pressure 153/95 H 151/84 H Pulse Oximetry 100 99 95 06/29/18 00:00 06/29/18 00:17 06/29/18 01:00 Temperature Pulse Rate 51 L 82 46 L Respiratory Rate 21 25 H 45 H Blood Pressure 138/80 Pulse Oximetry 100 95 93 L 06/29/18 01:17 06/29/18 02:00 06/29/18 02:17 Temperature Pulse Rate 47 L 73 48 L Respiratory Rate 48 H 39 H 45 H Blood Pressure 149/94 H 141/89 H Pulse Oximetry 98 93 L 96 06/29/18 03:00 06/29/18 03:17 06/29/18 04:00 Temperature Pulse Rate 51 L 80 44 L Respiratory Rate 38 H 43 H 45 H Blood Pressure 144/71 H Pulse Oximetry 99 96 96 06/29/18 04:17 06/29/18 05:00 06/29/18 05:17 Temperature Pulse Rate 45 L 67 74 Respiratory Rate 42 H 41 H 34 H Blood Pressure 130/83 114/65 Pulse Oximetry 95 98 95 06/29/18 06:00 Temperature Pulse Rate 46 L Respiratory Rate 21 Blood Pressure 114/65 Pulse Oximetry 100 Intake & Output 06/28/18 06/29/18 06/29/18 18:59 06:59 18:59 Intake Total 3200 / 3200 1450 / 1450 Output Total 1400 / 1400 1500 / 1500 Balance 1800 / 1800 -50 / -50 Weight 71.3 kg Intake: IV 1700 / 1700 450 / 450 NS Inj 1,000 ML @ 150 mls/hr IV 1000 / 1000 .CONT .Q6H40M [facility] Rx#:[id number] Zosyn 4.5 GM Premix 4.5 gm In 200 / 200 200 / 200 100 ml @ 200 mls/hr IV.SIG Q6H [facility] Rx#:[id number] Vancomycin Inj 1,000 MG In NS 500 / 500 250 / 250 Inj 250 ML @ 250 mls/hr IV.SIG Q8H [facility] Rx#:[id number] Oral 1500 / 1500 1000 / 1000 Output: Urine 1400 / 1400 1500 / 1500 Other: # Voids 4 3 Date of Last Bowel Movement 06/28/18 06/28/18 # Bowel Movements 1 1 - Routine Neurological Exam June 29, 2018 The patient is lying in bed is into the room. He is in no acute distress. On neurological examination: Mental status testing finds him to be awake and alert. He is oriented by 3. Cognitive functions grossly intact. His speech is fluent. Cranial nerve testing 2 through 12 is grossly intact. There were no focal motor or sensory deficits. The patient is ambulatory and continent. - Urinary Catheter Management Indwelling Urethral Catheter Cath placed during this visit: no Assessment and Plan - Plan 27 yo male IVDA with acute onset of LBP. Lumbar spine MRI suspicious for ventral epidural abscess and WBC 25K. Pain controlled Neurochecks q4hr ESR- 25 and CRP- 27 Bld.Cx's IR consult to biopsy Lumbar epidural space if patient does not improve with current Abx therapy ID Consult Regular diet OK to administer prophylactic but not therapeutic anticoagulation for DVT in view of epidural abscess and possible need for IR biopsy. Morphine/Percocet as needed for pain. Will follow June 29, 2018 As above, the patient remains neurologically intact. His back pain is improved. At this point a conservative neurosurgical approach is warranted with medical management and prolonged parenteral antibiotics for the spinal infection. Neurosurgery will sign off. Please reconsult as needed. I have discussed this case with Dr. Spring, intake clinician and he concurs.
--- NOTE | 2018-06-29 11:40 | P.PNCC ---
Subjective Subjective Remarks/Hospital Course: 27-year-old male with a medical history significant for HIV, IV drug abuse who presented with a history of low back pain that started a few days ago along with swelling noted in his right axillary region with prominence of his veins in the right upper extremity. He was evaluated at [facility] for low back pain underwent x-ray and CT scan which was reported negative and he was discharged he reportedly has been having of patient came back to the ER with worsening low back pain today however without any bowel or bladder incontinence or lower extremity weakness. He has been having high-grade fever up to 105 degrees over the last 3-4 days. He last used IV heroin last night. Patient stated that his CD4 count in February was 1000 however repeat that in March was 26. He has been on antiretroviral therapy. He also complains of right-sided chest pain with some difficulty with his breathing. Patient underwent MRI lumbosacral spine which revealed enhancement in L5-S1 region highly suspicious for epidural abscess. Patient was also found to have a DVT in the right subclavian vein. Stat neurosurgery consult was requested by ER and case discussed with Dr. Han for epidural abscess. Patient was accepted for admission by critical care medicine service with consult to neurosurgery. When I evaluated the patient he was laying in the ER stretcher. He complains of pain all over. He is requesting pain medications. He wishes to eat. 06/28: Complains of pleuritic chest pain right side. Pulmonary parenchymal lesion continuous with parietal pleura, undoubtedly painful. Infectious disease workup in progress. 06/29: 4 different employees from the lab have attempted to draw blood from this individual and are unable to obtain a specimen. The patient will require long-term vancomycin therapy and will require multiple blood draws for vancomycin levels, CBC , creatinine , BUN. There is one peripheral IV through which they cannot obtain blood return. The gentleman is a long-term intravenous drug abuser and peripheral access is absent. I have placed a central line for purposes of long-term vancomycin infusion and lab draws. The patient has positive blood cultures and elevated white cell count so I have not asked for help from the vascular access service. The patient underwent OLIVIA earlier today, interpretation pending. Objective Vital Signs / I&O: Vital Signs 06/28/18 11:28 06/28/18 12:00 06/28/18 12:28 Temperature 100.2 F H Pulse Rate 91 H 90 87 Respiratory Rate 32 H 26 H 38 H Blood Pressure 127/74 128/72 Pulse Oximetry 98 97 97 06/28/18 13:00 06/28/18 14:00 06/28/18 15:00 Temperature Pulse Rate 97 H 62 92 H Respiratory Rate 42 H 33 H 37 H Blood Pressure Pulse Oximetry 98 99 96 06/28/18 15:32 06/28/18 16:00 06/28/18 17:00 Temperature 99.6 F Pulse Rate 82 60 84 Respiratory Rate 33 H 36 H 44 H Blood Pressure 124/72 Pulse Oximetry 100 93 L 06/28/18 18:00 06/28/18 18:17 06/28/18 19:00 Temperature Pulse Rate 58 L 79 80 Respiratory Rate 38 H 36 H 37 H Blood Pressure 135/80 128/78 Pulse Oximetry 96 99 06/28/18 19:17 06/28/18 19:50 06/28/18 20:00 Temperature 99.2 F Pulse Rate 80 83 Respiratory Rate 34 H 36 H Blood Pressure 132/75 Pulse Oximetry 98 93 L 06/28/18 20:17 06/28/18 21:00 06/28/18 21:17 Temperature Pulse Rate 80 72 56 L Respiratory Rate 20 20 21 Blood Pressure 131/76 136/86 Pulse Oximetry 93 L 06/28/18 22:00 06/28/18 22:17 06/28/18 23:00 Temperature Pulse Rate 53 L 58 L 56 L Respiratory Rate 22 24 39 H Blood Pressure 153/95 H Pulse Oximetry 95 100 99 06/28/18 23:17 06/29/18 00:00 06/29/18 00:17 Temperature Pulse Rate 73 51 L 82 Respiratory Rate 19 21 25 H Blood Pressure 151/84 H 138/80 Pulse Oximetry 95 100 95 06/29/18 01:00 06/29/18 01:17 06/29/18 02:00 Temperature Pulse Rate 46 L 47 L 73 Respiratory Rate 45 H 48 H 39 H Blood Pressure 149/94 H Pulse Oximetry 93 L 98 93 L 06/29/18 02:17 06/29/18 03:00 06/29/18 03:17 Temperature Pulse Rate 48 L 51 L 80 Respiratory Rate 45 H 38 H 43 H Blood Pressure 141/89 H 144/71 H Pulse Oximetry 96 99 96 06/29/18 04:00 06/29/18 04:17 06/29/18 05:00 Temperature Pulse Rate 44 L 45 L 67 Respiratory Rate 45 H 42 H 41 H Blood Pressure 130/83 Pulse Oximetry 96 95 98 06/29/18 05:17 06/29/18 06:00 Temperature Pulse Rate 74 46 L Respiratory Rate 34 H 21 Blood Pressure 114/65 114/65 Pulse Oximetry 95 100 Intake & Output 06/28/18 06/29/18 06/29/18 18:59 06:59 18:59 Intake Total 3200 / 3200 1450 / 1450 Output Total 1400 / 1400 1500 / 1500 Balance 1800 / 1800 -50 / -50 Weight 71.3 kg Intake: IV 1700 / 1700 450 / 450 NS Inj 1,000 ML @ 150 mls/hr IV 1000 / 1000 .CONT .Q6H40M [facility] Rx#:[id number] Zosyn 4.5 GM Premix 4.5 gm In 200 / 200 200 / 200 100 ml @ 200 mls/hr IV.SIG Q6H [facility] Rx#:[id number] Vancomycin Inj 1,000 MG In NS 500 / 500 250 / 250 Inj 250 ML @ 250 mls/hr IV.SIG Q8H [facility] Rx#:[id number] Oral 1500 / 1500 1000 / 1000 Output: Urine 1400 / 1400 1500 / 1500 Other: # Voids 4 3 Date of Last Bowel Movement 06/28/18 06/28/18 # Bowel Movements 1 1 Result Diagrams: 06/28/18 03:51 06/28/18 03:51 Objective Remarks: Narrative: HEENT/Neuro: No pallor or icterus, tongue moist, DELMY, Awake alert oriented 3 , moving all 4 extremities though torso mobility limited secondary to low back pain and chest wall pain. Lumbar region is tender to palpation Neck: Airway widely patent, no obstructive noises. Chest/pulmonary: Excursions limited by pain. Lungs generally clear, no wheezes. Comfortable respiratory pattern. Cardiovascular: S1-S2 regular no gallop or murmur. Neck veins are flat. GI/abdomen: Soft, nontender, bowel sounds present, no guarding. Extremities: Warm bilaterally, swelling noted in right axilla with tenderness. Scarring/track doran over extremities noted. Assessment and Plan - Problem List (1) Bacteremia Code(s): R78.81 - Bacteremia Status: Acute (2) Abscess in epidural space of L2-L5 lumbar spine Code(s): G06.1 - Intraspinal abscess and granuloma Status: Acute (3) Poor venous access Code(s): I87.8 - Other specified disorders of veins Status: Acute (4) Acute deep vein thrombosis (DVT) of axillary vein of right upper extremity Code(s): I82.A11 - Acute embolism and thrombosis of right axillary vein Status : Acute (5) Drug abuse, IV Code(s): F19.10 - Other psychoactive substance abuse, uncomplicated Status: Acute (6) HIV positive Code(s): Z21 - Asymptomatic human immunodeficiency virus [HIV] infection status Status: Acute - Assessment and Plan Plan: 27-year-old male with: Sepsis L5-S1 epidural abscess/collection Right upper extremity DVT IV drug abuse Suspected endocarditis Suspected pulmonary septic emboli HIV Poor venous access Plan: Neuro: Admit to ICU, neuro checks per protocol. For early blood cultures are positive for gram-positive cocci, awaiting speciation. Neurosurgical service has seen and evaluated morphine/Percocet as needed for pain. Cardiovascular: Maintenance IV fluid. Pulmonary: Supplemental O2. Pulmonary arteriogram negative for embolus. GI/liver: Regular diet Renal/: IV hydration, strict intake output, monitor and replete elect lites, follow given creatinine. ID: Follow-up blood cultures. Empiric antibiotic coverage with IV vancomycin/ Zosyn. Neurosurgery to decide further intervention for epidural abscess/ collection. ID consult requested for further sepsis workup/epidural abscess/ HIV. Heme: Follow CBC and coags Endocrine: Watch for hypoglycemia, SSI for glycemic control if needed Prophylaxis: Pepcid/SCDs. Start chemical DVT px Left SCV CVL inserted 06/29 for blood draws and vancomycin Overall impression: This gentleman is obviously septic from intravenous drug use. The right pulmonary lesion appears to be necrotic. In view of the fact that we have got positive blood cultures growing we can hold off on direct biopsy of the lower back at this point.
--- NOTE | 2018-06-29 11:44 | P.PCN ---
Date of procedure: 06/29/18 Procedure: Diagnosis: Poor venous access, bacteremia, epidural abscess Procedure: Insertion left subclavian vein central line Narrative: Timeout performed and patient properly identified. Because of years of intravenous drug abuse the patient has quite poor venous access in the lab is unable to obtain blood samples for chemistry and drug levels. Additionally he requires long-term vancomycin therapy and the vascular access team will not place a line in the face of bacteremia. For that reason the patient needs a central line inserted for the administration of long-term vancomycin and blood draw samples. The left chest was prepped and draped. Patient was placed in Trendelenburg position and the infraclavicular region was anesthetized with 1 % Xylocaine. Underneath the left clavicle a thin-walled needle was used to cannulate the subclavian vein. A floppy wire was easily passed into the central circulation and a dilator was passed over the wire. The triple-lumen catheter was then passed over the wire to a distance of 18 cm. All 3 lm aspirated and were flushed. The line was secured with a StatLock device and a sterile dressing was applied. Chest x-ray confirmed the line in good position, suitable for use.
--- NOTE | 2018-06-29 11:55 | XR ---
EXAM DATE: 06/29/2018 11:36 AM EST AGE/SEX: 27 years / Male INDICATIONS: Central line placement CLINICAL DATA: This is the patient's subsequent encounter. Patient reports that signs and symptoms h ave been present for 3 days and indicates a pain score of Nonresponsive. MEDICAL/SURGICAL HISTORY: . HIV. Deep venous thrombosis. Lumbar spine abscess . Appendectomy . COMPARISON: [facility] – [place], CHEST SINGLE AP, 12/15/2016. . FINDINGS: Slight left lung base atelectasis and/or infiltrate is seen. Left subclavian line is pres ent with tip overlapping the expected region of the SVC. Heart and mediastinum are unremarkable for technique. No definite pneumothorax is seen for technique. CONCLUSION: Slight left lung base atelectasis and/or infiltrate is seen. Electronically signed by: Andreas Watts MD Board Certified Radiologist 06/29/2018 11:53 AM EST
[2018-06-29 12:00] LABS: Blood Urea Nitrogen 18 mg/dL (7-18); Glomerular Filtration Rate Greater Than 89 mL/min (>89)
--- NOTE | 2018-06-29 13:35 | P.PNID ---
Subjective Remarks: Patient is a 27-year-old male, with known HIV, and IV drug use, presented to the hospital complaining of low back pain. Patient stated he was sick with some fevers and body aches around Jonelle time. He did not seek any medical help and he got better. He started getting sick again June 24 with fevers, and he started having back pain. He was also complaining of pain in his right upper extremity, and felt like his veins are inflamed. He reportedly went to [facility] and evaluation at that time was unremarkable. His symptoms were not improving, and he also started having pain on the right side of his chest. He denies any cough. There is been no nausea or vomiting. No diarrhea or any urinary complaints. He has not noted any weakness in his lower extremity, or any bowel or bladder incontinence. Since presentation he has been documented to be febrile up to 101.5. His WBC is elevated. Sed rate is 25, C-reactive protein 27. Toxicology (+) opiates, amphetamines and cpcaine. MRI of the lumbosacral spine showing findings suggestive of epidural abscess at L5-S1. He also has DVT in the right subclavian and axillary vein. CTA of the chest did not show any pulmonary embolism, but there is a nodule in the right lower lobe, as well as scattered infiltrates in the lower bases. CT of the abdomen and pelvis is showing splenic enlargement. 2 blood cultures done on admission are now reported as growing gram-positive cocci in pairs and chains. He is currently on Vanco, and Zosyn. Patient has known active IV drug use, and has been using drugs for the last 1 year. Infectious disease consultation has been requested to assist with evaluation and treatment. Notes reviewed D/W RN Got versed and fentanyl for procedure today - OLIVIA and central line placement BC with GAS Per notes back pain better He is still sedated when I saw him ESR 25 CRP 27 Antibiotics: Vancomycin Zosyn Lines: Central line Past Medical History: HIV Appendectomy Allergies/Adverse Reactions: Allergies haloperidol Allergy (Severe, Unverified 06/27/18 15:10) Muscle Pain states lockjaw; but not actually sure now if this was what he was allergic to Objective Vital Signs 06/28/18 14:00 06/28/18 15:00 06/28/18 15:32 Temperature Pulse Rate 62 92 H 82 Respiratory Rate 33 H 37 H 33 H Blood Pressure 124/72 Pulse Oximetry 99 96 06/28/18 16:00 06/28/18 17:00 06/28/18 18:00 Temperature 99.6 F Pulse Rate 60 84 58 L Respiratory Rate 36 H 44 H 38 H Blood Pressure 135/80 Pulse Oximetry 100 93 L 96 06/28/18 18:17 06/28/18 19:00 06/28/18 19:17 Temperature Pulse Rate 79 80 80 Respiratory Rate 36 H 37 H 34 H Blood Pressure 128/78 132/75 Pulse Oximetry 99 06/28/18 19:50 06/28/18 20:00 06/28/18 20:17 Temperature 99.2 F Pulse Rate 83 80 Respiratory Rate 36 H 20 Blood Pressure 131/76 Pulse Oximetry 98 93 L 06/28/18 21:00 06/28/18 21:17 06/28/18 22:00 Temperature Pulse Rate 72 56 L 53 L Respiratory Rate 20 21 22 Blood Pressure 136/86 Pulse Oximetry 93 L 95 06/28/18 22:17 06/28/18 23:00 06/28/18 23:17 Temperature Pulse Rate 58 L 56 L 73 Respiratory Rate 24 39 H 19 Blood Pressure 153/95 H 151/84 H Pulse Oximetry 100 99 95 06/29/18 00:00 06/29/18 00:17 06/29/18 01:00 Temperature Pulse Rate 51 L 82 46 L Respiratory Rate 21 25 H 45 H Blood Pressure 138/80 Pulse Oximetry 100 95 93 L 06/29/18 01:17 06/29/18 02:00 06/29/18 02:17 Temperature Pulse Rate 47 L 73 48 L Respiratory Rate 48 H 39 H 45 H Blood Pressure 149/94 H 141/89 H Pulse Oximetry 98 93 L 96 06/29/18 03:00 06/29/18 03:17 06/29/18 04:00 Temperature Pulse Rate 51 L 80 44 L Respiratory Rate 38 H 43 H 45 H Blood Pressure 144/71 H Pulse Oximetry 99 96 96 06/29/18 04:17 06/29/18 05:00 06/29/18 05:17 Temperature Pulse Rate 45 L 67 74 Respiratory Rate 42 H 41 H 34 H Blood Pressure 130/83 114/65 Pulse Oximetry 95 98 95 06/29/18 06:00 06/29/18 07:48 06/29/18 08:00 Temperature 99.5 F Pulse Rate 46 L 79 74 Respiratory Rate 21 29 H 41 H Blood Pressure 114/65 121/74 Pulse Oximetry 100 98 06/29/18 09:00 06/29/18 09:14 06/29/18 09:15 Temperature Pulse Rate 51 L Respiratory Rate 32 H Blood Pressure 132/82 131/86 Pulse Oximetry 94 L 06/29/18 09:18 06/29/18 09:20 06/29/18 09:23 Temperature Pulse Rate 77 75 Respiratory Rate 22 Blood Pressure 130/77 120/73 125/78 Pulse Oximetry 95 97 06/29/18 09:25 06/29/18 09:27 06/29/18 09:30 Temperature Pulse Rate Respiratory Rate Blood Pressure 116/71 112/68 111/66 Pulse Oximetry 06/29/18 09:31 06/29/18 09:34 06/29/18 09:36 Temperature Pulse Rate Respiratory Rate Blood Pressure 111/68 116/72 117/70 Pulse Oximetry 06/29/18 09:39 06/29/18 09:41 06/29/18 10:00 Temperature Pulse Rate 64 Respiratory Rate 43 H Blood Pressure 116/73 118/70 119/75 Pulse Oximetry 100 06/29/18 10:42 06/29/18 10:45 06/29/18 10:47 Temperature Pulse Rate Respiratory Rate Blood Pressure 122/78 126/80 122/80 Pulse Oximetry 06/29/18 10:50 06/29/18 10:52 06/29/18 10:55 Temperature Pulse Rate Respiratory Rate Blood Pressure 125/82 122/85 130/81 Pulse Oximetry 06/29/18 11:00 06/29/18 12:00 06/29/18 13:00 Temperature 99.3 F Pulse Rate 69 50 L Respiratory Rate 39 H 32 H 43 H Blood Pressure 134/82 141/81 H 142/84 H Pulse Oximetry 100 88 L 100 Intake & Output 06/28/18 06/29/18 06/29/18 18:59 06:59 18:59 Intake Total 3200 / 3200 1450 / 1450 350 / 350 Output Total 1400 / 1400 1500 / 1500 Balance 1800 / 1800 -50 / -50 350 / 350 Weight 71.3 kg Intake: IV 1700 / 1700 450 / 450 350 / 350 NS Inj 1,000 ML @ 150 mls/hr IV 1000 / 1000 .CONT .Q6H40M [facility] Rx#:[id number] Zosyn 4.5 GM Premix 4.5 gm In 200 / 200 200 / 200 100 / 100 100 ml @ 200 mls/hr IV.SIG Q6H [facility] Rx#:[id number] Vancomycin Inj 1,000 MG In NS 500 / 500 250 / 250 250 / 250 Inj 250 ML @ 250 mls/hr IV.SIG Q8H [facility] Rx#:[id number] Oral 1500 / 1500 1000 / 1000 Output: Urine 1400 / 1400 1500 / 1500 Other: # Voids 4 3 Date of Last Bowel Movement 06/28/18 06/28/18 # Bowel Movements 1 1 06/29/18 11:22 Blood - Peripheral Aerobic Blood Culture - Pending 06/29/18 11:22 Blood - Peripheral Anaerobic Blood Culture - Pending 06/28/18 11:00 Blood - Peripheral Aerobic Blood Culture - Preliminary No growth in 1 day 06/28/18 11:00 Blood - Peripheral Anaerobic Blood Culture - Preliminary No growth in 1 day 06/28/18 11:00 Blood - Peripheral Aerobic Blood Culture - Preliminary No growth in 1 day 06/28/18 11:00 Blood - Peripheral Anaerobic Blood Culture - Preliminary No growth in 1 day 06/27/18 15:30 Blood - Peripheral Aerobic Blood Culture - Preliminary gram positive cocci 06/27/18 15:30 Blood - Peripheral Anaerobic Blood Culture - Preliminary Group A beta Strep 06/27/18 16:00 Blood - Peripheral Aerobic Blood Culture - Preliminary Group A beta Strep 06/27/18 16:00 Blood - Peripheral Anaerobic Blood Culture - Preliminary Group A beta Strep Lab - Hematology Results 06/27/18 06/28/18 16:00 03:51 WBC 25.2 H 21.7 H RBC 4.35 L 4.02 L Hgb 13.7 12.5 L Hct 40.4 36.9 L MCV 92.9 91.8 MCH 31.4 31.0 MCHC 33.8 33.8 RDW 14.8 14.7 Plt Count 320 309 MPV 8.0 7.7 Prelim Diff (Auto) Manual diff required Neut % (Auto) 82.2 H Lymph % (Auto) 8.8 L [place] % (Auto) 7.3 Eos % (Auto) 1.1 Baso % (Auto) 0.6 Neut # (Auto) 20.7 H Lymph # (Auto) 2.2 [place] # (Auto) 1.8 H Eos # (Auto) 0.3 Baso # (Auto) 0.2 WBC Differential . Manual diff final Seg Neuts % (Manual) 53 Band Neuts % (Manual) 40 H Lymphocytes % (Manual) 2 L Monocytes % (Manual) 5 Abs Neuts (Manual) 20.2 H Differential Comment Auto diff final . Toxic Granulation 1+ H Toxic Vacuolation Present H Dohle Bodies Present H Platelet Estimate Normal Platelet Morphology Normal ESR 25 H Lab - Chemistry Results 06/27/18 06/27/18 06/27/18 16:00 16:00 16:30 Sodium 133 L Potassium 4.9 Chloride 95 L Carbon Dioxide 30.8 Anion Gap 7 BUN 42 H Creatinine 1.49 H Estimated GFR 57 L Random Glucose 102 Lactic Acid 1.0 Calcium 8.4 L Phosphorus Magnesium Total Bilirubin 0.6 AST 45 H ALT 24 Alkaline Phosphatase 257 H C-Reactive Protein 27.00 H Total Protein 8.4 H Albumin 2.6 L 06/28/18 06/28/18 06/29/18 03:51 03:51 11:22 Sodium 135 L Potassium 4.0 D Chloride 99 Carbon Dioxide 31.2 Anion Gap 5 BUN 27 H 18 Creatinine 0.89 0.85 Estimated GFR Greater than 89 Greater than 89 Random Glucose 98 Lactic Acid 0.7 Calcium 8.0 L Phosphorus 3.3 Magnesium 2.8 H Total Bilirubin 0.4 AST 17 ALT 18 Alkaline Phosphatase 182 H C-Reactive Protein Total Protein 7.0 D Albumin 2.1 L Imaging: ITS Impressions Abdomen/Pelvis CT 06/27/18 00:00 CONCLUSION: 1. Subsegmental pneumonia at the lung bases. 2. Splenic enlargement. Mild periportal edema in the liver. Previous appendectomy. Chest CTA 06/27/18 00:00 CONCLUSION: 1. Negative for pulmonary embolus. 2. Cavitary nodule superior segment right lower lobe measuring 2.1 cm. Patchy airspace consolidation in both lower lobes most characteristic of bronchopneumonia. Trace pleural fluid. Venous Doppler Study 06/27/18 15:53 CONCLUSION: 1. There is occlusive deep venous thrombosis in the right subclavian and axillary veins. Lumbar Spine MRI 06/27/18 17:39 CONCLUSION: Abnormal mixed signal intensity epidural fluid collection in the anterior extradural space from L5 down to mid body of S1 causing moderate to severe thecal sac stenosis L5-S1 highly suspicious for epidural abscess in the appropriate clinical setting. Chest X-Ray 06/29/18 00:00 CONCLUSION: Slight left lung base atelectasis and/or infiltrate is seen. Physical Exam: General: Very sedated Skin no rash Chest: Clear posteriorly Cardiac; NO murmur Extremities: No pedal edema Assessment and Plan - Plan Impression Sepsis with GAS - OLIVIA negative - ?septic thrombus L5S1 epidural abscess, hematogenous seeding Alexei infiltrates, no PNA symptoms, possibly septic emboli (though CT not the typical findings) IVDU HIV on HAART DVT R subclavian and axillary veins, very worrisome of septic phlebitis Recommendations Repeat BC to document clearing Check CD4 counts Continue his HIV meds Continue vanco IV Rocephin Will deescalate further once all C/S available Follow C/S and adjust Abx Neurosurgery following - ?if location of abscess amenable for sampling
[2018-06-29] MEDS ORDERED: ODEFSEY PO SCH (15:00)
[2018-06-29] MEDS ORDERED: Zolpidem Tartrate 5 MG Tablet PO ONE (21:25)
[2018-06-30] MEDS: Vancomycin Inj 1,000 MG in Sodium Chlor 0.9% Inj 250 ML IV.SIG SCH ×2 (01:31→08:00)
[2018-06-30] MEDS: Morphine Inj 4 MG/ML Vial IV.PUSH PRN ×3 (01:41→10:14)
[2018-06-30] MEDS: Chlorhexidine Gluconate 2% 1 Pack (2 Cloths) TOPICAL SCH (03:46)
[2018-06-30 06:20] LABS: Blood Urea Nitrogen 19 mg/dL (7-18); Glomerular Filtration Rate Greater Than 89 mL/min (>89)
[2018-06-30] MEDS: Senna/Docusate Sodium 8.6/50 MG Tablet PO SCH (08:00)
[2018-06-30] MEDS: Famotidine PF Inj 20 MG/2 ML Vial IV.PUSH SCH (08:00)
[2018-06-30] MEDS ORDERED: Potassium Chlor 40 mEq Premix 40 MEQ/100 ML PIGGYBACK IV.SIG PRN ×2 (09:11)
[2018-06-30] MEDS ORDERED: Potassium Phosphate 500 MG Soluble Tablet PO PRN ×2 (09:11)
[2018-06-30] MEDS ORDERED: Potassium Chlor 20 mEq Premix 20 MEQ/100 ML PIGGYBACK IV.SIG PRN ×2 (09:11)
[2018-06-30] MEDS ORDERED: Potassium Phosphate Inj 30 MMOL in Sodium Chlor 0.9% Inj 250 ML IV.SIG PRN (09:11)
[2018-06-30] MEDS ORDERED: Magnesium Oxide 400 MG Tablet PO PRN (09:11)
[2018-06-30] MEDS ORDERED: Potassium Chloride 25 MEQ Effervescent Tablet PO PRN (09:11)
[2018-06-30] MEDS ORDERED: Magnesium Sulfate Inj 4 GM in Sodium Chlor 0.9% Inj 92 ML IV.SIG PRN (09:11)
[2018-06-30] MEDS ORDERED: Magnesium Sulfate Inj 2 GM in Sodium Chlor 0.9% Inj 96 ML IV.SIG PRN (09:11)
[2018-06-30] MEDS ORDERED: Sodium Phosphate Inj 30 MMOL in Sodium Chlor 0.9% Inj 250 ML IV.SIG PRN (09:11)
[2018-06-30] MEDS ORDERED: Multivit/Folic Acid/Minerals Chewable Tablets CHEW SCH (09:15)
--- NOTE | 2018-06-30 09:17 | P.PNCC ---
Subjective Subjective Remarks/Hospital Course: 27-year-old male with a medical history significant for HIV, IV drug abuse who presented with a history of low back pain that started a few days ago along with swelling noted in his right axillary region with prominence of his veins in the right upper extremity. He was evaluated at [facility] for low back pain underwent x-ray and CT scan which was reported negative and he was discharged he reportedly has been having of patient came back to the ER with worsening low back pain today however without any bowel or bladder incontinence or lower extremity weakness. He has been having high-grade fever up to 105 degrees over the last 3-4 days. He last used IV heroin last night. Patient stated that his CD4 count in February was 1000 however repeat that in March was 26. He has been on antiretroviral therapy. He also complains of right-sided chest pain with some difficulty with his breathing. Patient underwent MRI lumbosacral spine which revealed enhancement in L5-S1 region highly suspicious for epidural abscess. Patient was also found to have a DVT in the right subclavian vein. Stat neurosurgery consult was requested by ER and case discussed with Dr. Han for epidural abscess. Patient was accepted for admission by critical care medicine service with consult to neurosurgery. When I evaluated the patient he was laying in the ER stretcher. He complains of pain all over. He is requesting pain medications. He wishes to eat. 06/28: Complains of pleuritic chest pain right side. Pulmonary parenchymal lesion continuous with parietal pleura, undoubtedly painful. Infectious disease workup in progress. 06/29: 4 different employees from the lab have attempted to draw blood from this individual and are unable to obtain a specimen. The patient will require long-term vancomycin therapy and will require multiple blood draws for vancomycin levels, CBC , creatinine , BUN. There is one peripheral IV through which they cannot obtain blood return. The gentleman is a long-term intravenous drug abuser and peripheral access is absent. I have placed a central line for purposes of long-term vancomycin infusion and lab draws. The patient has positive blood cultures and elevated white cell count so I have not asked for help from the vascular access service. The patient underwent OLIVIA earlier today, interpretation pending. 06/30: No overnight events, patient has has no complaints at present, eager to be discharged. Objective Vital Signs / I&O: Vital Signs 06/29/18 09:14 06/29/18 09:15 06/29/18 09:18 Temperature Pulse Rate 77 Respiratory Rate Blood Pressure 132/82 131/86 130/77 Pulse Oximetry 95 06/29/18 09:20 06/29/18 09:23 06/29/18 09:25 Temperature Pulse Rate 75 Respiratory Rate 22 Blood Pressure 120/73 125/78 116/71 Pulse Oximetry 97 06/29/18 09:27 06/29/18 09:30 06/29/18 09:31 Temperature Pulse Rate Respiratory Rate Blood Pressure 112/68 111/66 111/68 Pulse Oximetry 06/29/18 09:34 06/29/18 09:36 06/29/18 09:39 Temperature Pulse Rate Respiratory Rate Blood Pressure 116/72 117/70 116/73 Pulse Oximetry 06/29/18 09:41 06/29/18 10:00 06/29/18 10:42 Temperature Pulse Rate 64 Respiratory Rate 43 H Blood Pressure 118/70 119/75 122/78 Pulse Oximetry 100 06/29/18 10:45 06/29/18 10:47 06/29/18 10:50 Temperature Pulse Rate Respiratory Rate Blood Pressure 126/80 122/80 125/82 Pulse Oximetry 06/29/18 10:52 06/29/18 10:55 06/29/18 11:00 Temperature Pulse Rate 69 Respiratory Rate 39 H Blood Pressure 122/85 130/81 134/82 Pulse Oximetry 100 06/29/18 12:00 06/29/18 13:00 06/29/18 14:00 Temperature 99.3 F Pulse Rate 50 L 50 L 48 L Respiratory Rate 30 H 43 H 28 H Blood Pressure 141/81 H 142/84 H 110/75 Pulse Oximetry 88 L 100 100 06/29/18 15:00 06/29/18 16:00 06/29/18 17:00 Temperature 99.0 F Pulse Rate 57 L 46 L 67 Respiratory Rate 37 H 44 H 40 H Blood Pressure 142/87 H 139/75 Pulse Oximetry 100 100 97 06/29/18 17:14 06/29/18 17:30 06/29/18 18:00 Temperature Pulse Rate 71 52 L Respiratory Rate 37 H 38 H Blood Pressure 124/74 Pulse Oximetry 97 100 06/29/18 18:17 06/29/18 19:00 06/29/18 20:00 Temperature Pulse Rate 75 53 L Respiratory Rate 21 27 H Blood Pressure 127/81 117/63 118/74 Pulse Oximetry 92 L 96 99 06/29/18 21:00 06/29/18 21:30 06/29/18 22:20 Temperature Pulse Rate 50 L 63 Respiratory Rate 24 21 Blood Pressure 121/87 128/77 Pulse Oximetry 97 99 06/29/18 22:21 06/29/18 23:00 06/30/18 00:00 Temperature 100 F H Pulse Rate 74 46 L 51 L Respiratory Rate 27 H 23 29 H Blood Pressure 122/77 135/83 Pulse Oximetry 98 98 94 L 06/30/18 01:00 06/30/18 02:00 06/30/18 03:00 Temperature 99.4 F 99 F Pulse Rate 47 L 46 L 67 Respiratory Rate 30 H 31 H 29 H Blood Pressure 134/86 132/67 122/73 Pulse Oximetry 95 99 98 06/30/18 04:00 06/30/18 05:00 06/30/18 06:00 Temperature Pulse Rate 45 L 62 63 Respiratory Rate 29 H 31 H 22 Blood Pressure 118/83 135/82 121/78 Pulse Oximetry 97 96 95 06/30/18 06:25 Temperature Pulse Rate Respiratory Rate 32 H Blood Pressure Pulse Oximetry Intake & Output 06/29/18 06/30/18 06/30/18 18:59 06:59 18:59 Intake Total 700 / 700 590 / 590 Balance 700 / 700 590 / 590 Weight 71.8 kg Intake: IV 700 / 700 250 / 250 Zosyn 4.5 GM Premix 4.5 gm In 100 / 100 100 ml @ 200 mls/hr IV.SIG Q6H JAYLYN Rx#:[id number] Vancomycin Inj 1,000 MG In NS 500 / 500 250 / 250 Inj 250 ML @ 250 mls/hr IV.SIG Q8H JAYLYN Rx#:[id number] Rocephin Inj 2,000 MG In NS Inj 100 / 100 100 ML @ 200 mls/hr IV.SIG Q24H JAYLYN Rx#:[id number] Oral 340 / 340 Other: # Voids 4 3 Date of Last Bowel Movement 06/29/18 06/30/18 # Bowel Movements 2 2 # Incontinent Bowel Movements 2 Result Diagrams: 06/28/18 03:51 06/30/18 05:50 Objective Remarks: GEN: Well-appearing, no acute distress HEENT: PERRL NECK: Trachea midline CARDIO: Regular rate and rhythm, no murmurs PULM: Clear to auscultation bilaterally ABD/GI: Soft, non-tender in all quadrants EXT/MSK: No peripheral edema SKIN: Warm and well-perfused, no rashes or lesions NEURO: A&O, conversant, no focal neuro deficits PSYCH: Calm Assessment and Plan - Assessment and Plan Plan: 27-year-old male with history of HIV and IVDA presenting with sepsis secondary to bacteremia and epidural abscess Plan by systems: NEURO: L5-S1 epidural abscess History of IVDA -No neurosurgical intervention planned -Monitor for signs of opiate withdrawal, supportive care CARDIO: RUE DVT -No neurosurgical intervention planned, start treatment dose lovenox -Requires continue central line access as patient has poor peripheral access and positive blood cultures. Will need PICC line in the next few days if he remains afebrile/ negative cultures as he will likely need prolonged course of antibiotics -OLIVIA shows no vegetations PULM: Tobacco use disorder -Incentive spirometry -Nicotine patch ordered, patient counseled on importance of smoking cessation F/E/N: -ICU electrolyte protocol -Regular diet -No maintenance fluids ID: Group A strep bacteremia Necrotizing pulmonary septic emboli RUE DVT, suspected septic embolus History of HIV -Continue rocephin/ vanco -Initial blood cultures from 06/27 were positive (/) for group A strep, repeat cultures from 06/28 show no growth at 1 day -Continue HAART -ID following, appreciate recommendations PROPHY: -No indication for PPI as patient is tolerating regular diet -SCDs, treatment dose lovenox Overall impression: This patient is stable/ improving, no neurosurgical intervention is planned, and he can be moved out of [facility] to med-surg floor. Hospitalist consulted for continuation of medical management. He will likely require PICC line in the next day or two for prolonged IV antibiotics, will continue left subclavian central line until then. To help prompt me to consider important information that might be impacting today's encounter and assessment, information from prior notes written by myself or my colleagues may have been "brought forward" into today's note. My signature on this note, however, is an attestation that I personally performed the exam, history, and/or decision-making noted today, and, unless otherwise indicated, the interactions with patient, family, and staff as well as the review of records all occurred today. I also attest that the listed assessment and stated plan reflect my best clinical judgment today based on the combination of historical information, prior notes, and today's exam/ interactions. Code Status: Full
[2018-06-30] MEDS ORDERED: EMTRICITABINE PO SCH (09:30)
[2018-06-30] MEDS ORDERED: Enoxaparin Inj 80 MG/0.8 ML Syringe SQ SCH (09:30)
[2018-06-30] MEDS ORDERED: RILPIVIRINE 25 MG PO SCH (09:30)
[2018-06-30] MEDS ORDERED: [UNRECOGNIZED DRUG - OTHER] PO SCH (09:30)
--- NOTE | 2018-06-30 10:49 | P.PNID ---
Subjective Remarks: Patient is a 27-year-old male, with known HIV, and IV drug use, presented to the hospital complaining of low back pain. Patient stated he was sick with some fevers and body aches around [place] time. He did not seek any medical help and he got better. He started getting sick again June 24 with fevers, and he started having back pain. He was also complaining of pain in his right upper extremity, and felt like his veins are inflamed. He reportedly went to [facility] and evaluation at that time was unremarkable. His symptoms were not improving, and he also started having pain on the right side of his chest. He denies any cough. There is been no nausea or vomiting. No diarrhea or any urinary complaints. He has not noted any weakness in his lower extremity, or any bowel or bladder incontinence. Since presentation he has been documented to be febrile up to 101.5. His WBC is elevated. Sed rate is 25, C-reactive protein 27. Toxicology (+) opiates, amphetamines and cpcaine. MRI of the lumbosacral spine showing findings suggestive of epidural abscess at L5-S1. He also has DVT in the right subclavian and axillary vein. CTA of the chest did not show any pulmonary embolism, but there is a nodule in the right lower lobe, as well as scattered infiltrates in the lower bases. CT of the abdomen and pelvis is showing splenic enlargement. 2 blood cultures done on admission are now reported as growing gram-positive cocci in pairs and chains. He is currently on Vanco, and Zosyn. Patient has known active IV drug use, and has been using drugs for the last 1 year. Infectious disease consultation has been requested to assist with evaluation and treatment. Notes reviewed D/W RN Still with intermittent low grade temps Feels better BC with GAS Repeat BC negative so far ESR 25 CRP 27 OLIVIA negative Has thrombus R SC and R axillary vein CT chest with infiltrates seen and a cavitary nodule Antibiotics: Vancomycin Rocephin Lines: Central line Past Medical History: HIV Appendectomy Allergies/Adverse Reactions: Allergies haloperidol Allergy (Severe, Unverified 06/27/18 15:10) Muscle Pain states lockjaw; but not actually sure now if this was what he was allergic to Objective Vital Signs 06/29/18 10:47 06/29/18 10:50 06/29/18 10:52 Temperature Pulse Rate Respiratory Rate Blood Pressure 122/80 125/82 122/85 Pulse Oximetry 06/29/18 10:55 06/29/18 11:00 06/29/18 12:00 Temperature 99.3 F Pulse Rate 69 50 L Respiratory Rate 39 H 30 H Blood Pressure 130/81 134/82 141/81 H Pulse Oximetry 100 88 L 06/29/18 13:00 06/29/18 14:00 06/29/18 15:00 Temperature Pulse Rate 50 L 48 L 57 L Respiratory Rate 43 H 28 H 37 H Blood Pressure 142/84 H 110/75 142/87 H Pulse Oximetry 100 100 100 06/29/18 16:00 06/29/18 17:00 06/29/18 17:14 Temperature 99.0 F Pulse Rate 46 L 67 71 Respiratory Rate 44 H 40 H 37 H Blood Pressure 139/75 124/74 Pulse Oximetry 100 97 97 06/29/18 17:30 06/29/18 18:00 06/29/18 18:17 Temperature Pulse Rate 52 L Respiratory Rate 38 H Blood Pressure 127/81 Pulse Oximetry 100 92 L 06/29/18 19:00 06/29/18 20:00 06/29/18 21:00 Temperature Pulse Rate 75 53 L 50 L Respiratory Rate 21 27 H 24 Blood Pressure 117/63 118/74 121/87 Pulse Oximetry 96 99 97 06/29/18 21:30 06/29/18 22:20 06/29/18 22:21 Temperature 100 F H Pulse Rate 63 74 Respiratory Rate 21 27 H Blood Pressure 128/77 Pulse Oximetry 99 98 06/29/18 23:00 06/30/18 00:00 06/30/18 01:00 Temperature 99.4 F Pulse Rate 46 L 51 L 47 L Respiratory Rate 23 29 H 30 H Blood Pressure 122/77 135/83 134/86 Pulse Oximetry 98 94 L 95 06/30/18 02:00 06/30/18 03:00 06/30/18 04:00 Temperature 99 F Pulse Rate 46 L 67 45 L Respiratory Rate 31 H 29 H 29 H Blood Pressure 132/67 122/73 118/83 Pulse Oximetry 99 98 97 06/30/18 05:00 06/30/18 06:00 06/30/18 06:25 Temperature Pulse Rate 62 63 Respiratory Rate 31 H 22 32 H Blood Pressure 135/82 121/78 Pulse Oximetry 96 95 Intake & Output 06/29/18 06/30/18 06/30/18 18:59 06:59 18:59 Intake Total 700 / 700 590 / 590 Balance 700 / 700 590 / 590 Weight 71.8 kg Intake: IV 700 / 700 250 / 250 Zosyn 4.5 GM Premix 4.5 gm In 100 / 100 100 ml @ 200 mls/hr IV.SIG Q6H JAYLYN Rx#:[id number] Vancomycin Inj 1,000 MG In NS 500 / 500 250 / 250 Inj 250 ML @ 250 mls/hr IV.SIG Q8H JAYLYN Rx#:[id number] Rocephin Inj 2,000 MG In NS Inj 100 / 100 100 ML @ 200 mls/hr IV.SIG Q24H JAYLYN Rx#:[id number] Oral 340 / 340 Other: # Voids 4 3 Date of Last Bowel Movement 06/29/18 06/30/18 # Bowel Movements 2 2 # Incontinent Bowel Movements 2 06/27/18 15:30 Blood - Peripheral Aerobic Blood Culture - Final Group A beta Strep 06/27/18 15:30 Blood - Peripheral Anaerobic Blood Culture - Final Group A beta Strep 06/27/18 16:00 Blood - Peripheral Aerobic Blood Culture - Final Group A beta Strep 06/27/18 16:00 Blood - Peripheral Anaerobic Blood Culture - Final Group A beta Strep 06/29/18 11:22 Blood - Peripheral Aerobic Blood Culture - Pending 06/29/18 11:22 Blood - Peripheral Anaerobic Blood Culture - Pending 06/28/18 11:00 Blood - Peripheral Aerobic Blood Culture - Preliminary No growth in 1 day 06/28/18 11:00 Blood - Peripheral Anaerobic Blood Culture - Preliminary No growth in 1 day 06/28/18 11:00 Blood - Peripheral Aerobic Blood Culture - Preliminary No growth in 1 day 06/28/18 11:00 Blood - Peripheral Anaerobic Blood Culture - Preliminary No growth in 1 day Lab - Chemistry Results 06/29/18 06/30/18 11:22 05:50 BUN 18 19 H Creatinine 0.85 0.90 Estimated GFR Greater than 89 Greater than 89 Imaging: ITS Impressions Abdomen/Pelvis CT 06/27/18 00:00 CONCLUSION: 1. Subsegmental pneumonia at the lung bases. 2. Splenic enlargement. Mild periportal edema in the liver. Previous appendectomy. Chest CTA 06/27/18 00:00 CONCLUSION: 1. Negative for pulmonary embolus. 2. Cavitary nodule superior segment right lower lobe measuring 2.1 cm. Patchy airspace consolidation in both lower lobes most characteristic of bronchopneumonia. Trace pleural fluid. Venous Doppler Study 06/27/18 15:53 CONCLUSION: 1. There is occlusive deep venous thrombosis in the right subclavian and axillary veins. Lumbar Spine MRI 06/27/18 17:39 CONCLUSION: Abnormal mixed signal intensity epidural fluid collection in the anterior extradural space from L5 down to mid body of S1 causing moderate to severe thecal sac stenosis L5-S1 highly suspicious for epidural abscess in the appropriate clinical setting. Chest X-Ray 06/29/18 00:00 CONCLUSION: Slight left lung base atelectasis and/or infiltrate is seen. Physical Exam: GENERAL: awake and alert, not in respiratory distress. SKIN: Warm and dry. Has scattered dry wounds both UE nad LE. No ecchymoses and no evidence of embolic lesions. HEAD: Atraumatic. Normocephalic. No temporal wasting, or tenderness. EYES: [place] conjunctiva. No petechia or hemorrhage. No scleral icterus. No injection or drainage. EARS, NOSE AND THROAT: Mucous membranes pink and moist. No oral lesions noted. No exudate. No oral thrush. NECK: Trachea midline. Supple and not tender, no meningeal signs CARDIOVASCULAR: Regular rate and rhythm. No murmurs, rubs or gallops heard RESPIRATORY: Clear to auscultation. Breath sounds equal bilaterally. No rales , wheezing or rhonchi. ABDOMEN: Soft, flat, nondistended, non-tender. Bowel sounds present and normoactive. No guarding. No rebound. EXTREMITIES: No clubbing, cyanosis, or edema in BLE. No calf tenderness. Well perfused and warm. NEUROLOGICAL: Awake and alert. Cranial nerves grossly intact. Motor grossly within normal limits. PSYCHIATRIC: Normal affect, calm and cooperative. LINE: No evidence of infection Assessment and Plan - Plan Impression Sepsis with GAS - OLIVIA negative - ?septic thrombus L5S1 epidural abscess, hematogenous seeding Alexei infiltrates, no PNA symptoms, possibly septic emboli (though CT not the typical findings) IVDU HIV on HAART DVT R subclavian and axillary veins, very worrisome of septic phlebitis Recommendations Repeat BC to document clearing Check CD4 counts Continue his HIV meds Stop vanco IV Rocephin Follow C/S and adjust Abx
[2018-06-30 11:05] VITALS: BP 122/77; PULSE 59; RESP 30; TEMP 98; O2SAT 98
[2018-06-30] MEDS ORDERED: Dalbavancin Inj 1,500 MG in Dextrose 5% in Water Inj 500 ML IV.SIG STA ×2 (11:47)
--- NOTE | 2018-06-30 12:02 | P.DS ---
Date of admission: 06/27/18 20:27 Primary care physician: UNKNOWN Attending physician on discharge: Yelena Maria Brief History from admission: 27-year-old male with a medical history significant for HIV, IV drug abuse who presented with a history of low back pain that started a few days ago along with swelling noted in his right axillary region with prominence of his veins in the right upper extremity. He was evaluated at [facility] for low back pain underwent x-ray and CT scan which was reported negative and he was discharged he reportedly has been having of patient came back to the ER with worsening low back pain today however without any bowel or bladder incontinence or lower extremity weakness. He has been having high-grade fever up to 105 degrees over the last 3-4 days. He last used IV heroin last night. Patient stated that his CD4 count in February was 1000 however repeat that in March was 26. He has been on antiretroviral therapy. He also complains of right-sided chest pain with some difficulty with his breathing. Patient underwent MRI lumbosacral spine which revealed enhancement in L5-S1 region highly suspicious for epidural abscess. Patient was also found to have a DVT in the right subclavian vein. Stat neurosurgery consult was requested by ER and case discussed with Dr. Han for epidural abscess. Patient was accepted for admission by critical care medicine service with consult to neurosurgery. When I evaluated the patient he was laying in the ER stretcher. He complains of pain all over. He is requesting pain medications. He wishes to eat. Patient update on day of discharge: Brody Chopra insists on leaving against medical advice, despite my recommendation to remain for ongoing treatment. 1: Capacity: I have determined that the patient has capacity to make the decision to leave against medical advice based on the following: A. Ability to express a choice: The patient is able to express his or her choice and communicate that choice. B. Ability to understand relevant information: The patient is able to verbalize their diagnosis, understand information about the purpose of treatment , remember the information, and show that he or she can be part of the decision- making process. C. Ability to appreciate the significance of the information and its consequences: The patient understands the consequences of treatment refusal and the risks and benefits of accepting or refusing treatment. D. Ability to manipulate information: The patient is able to engage in reasoning as it applies to making treatment decisions. 2: Psychiatric Consultation: There is not an indication to call psychiatry consultation to determine capacity. 3. Alternative Treatment: I have discussed the recommended course of treatment and available alternatives. 4. Risks: I have discussed the specific risks of that patient refusing treatment. 5. Follow-up Care: I have discussed the follow-up care and advised to make an appointment with [facility]. 6. ED Option: I have emphasized that the patient has the option to return to the ED. I spoke with Dr. Onofre (infectious disease) and Dr. Spring regarding the patient. There are no appropriate outpatient PO antibiotics to treat the patient 's infection, and his upper extremity DVT does not require outpatient anticoagulation. DS: Diagnosis - Discharge Diagnosis (1) Abscess in epidural space of L2-L5 lumbar spine Status: Acute Diagnosis: Principal (2) Acute deep vein thrombosis (DVT) of axillary vein of right upper extremity Status: Acute Diagnosis: Secondary (3) Drug abuse, IV Status: Acute Diagnosis: Secondary (4) HIV positive Status: Chronic Diagnosis: Secondary (5) Bacteremia Status: Acute Diagnosis: Secondary (6) Poor venous access Status: Acute Diagnosis: Secondary DS: Summary Hospital Course: 27-year-old male with a medical history significant for HIV, IV drug abuse who presented with a history of low back pain that started a few days ago along with swelling noted in his right axillary region with prominence of his veins in the right upper extremity. He was evaluated at [facility] for low back pain underwent x-ray and CT scan which was reported negative and he was discharged he reportedly has been having of patient came back to the ER with worsening low back pain today however without any bowel or bladder incontinence or lower extremity weakness. He has been having high-grade fever up to 105 degrees over the last 3-4 days. He last used IV heroin last night. Patient stated that his CD4 count in February was 1000 however repeat that in March was 26. He has been on antiretroviral therapy. He also complains of right-sided chest pain with some difficulty with his breathing. Patient underwent MRI lumbosacral spine which revealed enhancement in L5-S1 region highly suspicious for epidural abscess. Patient was also found to have a DVT in the right subclavian vein. Stat neurosurgery consult was requested by ER and case discussed with Dr. Han for epidural abscess. Patient was accepted for admission by critical care medicine service with consult to neurosurgery. When I evaluated the patient he was laying in the ER stretcher. He complains of pain all over. He is requesting pain medications. He wishes to eat. 06/28: Complains of pleuritic chest pain right side. Pulmonary parenchymal lesion continuous with parietal pleura, undoubtedly painful. Infectious disease workup in progress. 06/29: 4 different employees from the lab have attempted to draw blood from this individual and are unable to obtain a specimen. The patient will require long-term vancomycin therapy and will require multiple blood draws for vancomycin levels, CBC , creatinine , BUN. There is one peripheral IV through which they cannot obtain blood return. The gentleman is a long-term intravenous drug abuser and peripheral access is absent. I have placed a central line for purposes of long-term vancomycin infusion and lab draws. The patient has positive blood cultures and elevated white cell count so I have not asked for help from the vascular access service. The patient underwent OLIVIA earlier today, interpretation pending. 06/30: No overnight events, patient has has no complaints at present, eager to be discharged. - Time Spent with Patient Total time spent providing and/or coordinating discharge services: Less than 30 minutes - Quality: VTE Deep Vein Thrombosis/Pulmonary Embolism Present on Admission: Yes Exam Vital signs: Vital Signs 06/29/18 12:00 06/29/18 13:00 06/29/18 14:00 Temperature 99.3 F Pulse Rate 50 L 50 L 48 L Respiratory Rate 30 H 43 H 28 H Blood Pressure 141/81 H 142/84 H 110/75 Pulse Oximetry 88 L 100 100 06/29/18 15:00 06/29/18 16:00 06/29/18 17:00 Temperature 99.0 F Pulse Rate 57 L 46 L 67 Respiratory Rate 37 H 44 H 40 H Blood Pressure 142/87 H 139/75 Pulse Oximetry 100 100 97 06/29/18 17:14 06/29/18 17:30 06/29/18 18:00 Temperature Pulse Rate 71 52 L Respiratory Rate 37 H 38 H Blood Pressure 124/74 Pulse Oximetry 97 100 06/29/18 18:17 06/29/18 19:00 06/29/18 20:00 Temperature Pulse Rate 75 53 L Respiratory Rate 21 27 H Blood Pressure 127/81 117/63 118/74 Pulse Oximetry 92 L 96 99 06/29/18 21:00 06/29/18 21:30 06/29/18 22:20 Temperature Pulse Rate 50 L 63 Respiratory Rate 24 21 Blood Pressure 121/87 128/77 Pulse Oximetry 97 99 06/29/18 22:21 06/29/18 23:00 06/30/18 00:00 Temperature 100 F H Pulse Rate 74 46 L 51 L Respiratory Rate 27 H 23 29 H Blood Pressure 122/77 135/83 Pulse Oximetry 98 98 94 L 06/30/18 01:00 06/30/18 02:00 06/30/18 03:00 Temperature 99.4 F 99 F Pulse Rate 47 L 46 L 67 Respiratory Rate 30 H 31 H 29 H Blood Pressure 134/86 132/67 122/73 Pulse Oximetry 95 99 98 06/30/18 04:00 06/30/18 05:00 06/30/18 06:00 Temperature Pulse Rate 45 L 62 63 Respiratory Rate 29 H 31 H 22 Blood Pressure 118/83 135/82 121/78 Pulse Oximetry 97 96 95 06/30/18 06:25 06/30/18 07:00 06/30/18 07:50 Temperature Pulse Rate 58 L 54 L Respiratory Rate 32 H 34 H 30 H Blood Pressure 129/75 Pulse Oximetry 98 100 06/30/18 08:00 06/30/18 08:07 06/30/18 08:08 Temperature 98 F Pulse Rate 72 49 L Respiratory Rate 29 H 36 H Blood Pressure 127/71 Pulse Oximetry 100 06/30/18 09:00 06/30/18 10:00 06/30/18 11:00 Temperature Pulse Rate 72 49 L 59 L Respiratory Rate 32 H 29 H 30 H Blood Pressure 133/74 123/76 122/77 Pulse Oximetry 81 L 100 98 Intake & Output 06/29/18 06/30/18 06/30/18 18:59 06:59 18:59 Intake Total 700 / 700 590 / 590 Balance 700 / 700 590 / 590 Weight 71.8 kg Intake: IV 700 / 700 250 / 250 Zosyn 4.5 GM Premix 4.5 gm In 100 / 100 100 ml @ 200 mls/hr IV.SIG Q6H JAYLYN Rx#:[id number] Vancomycin Inj 1,000 MG In NS 500 / 500 250 / 250 Inj 250 ML @ 250 mls/hr IV.SIG Q8H JAYLYN Rx#:[id number] Rocephin Inj 2,000 MG In NS Inj 100 / 100 100 ML @ 200 mls/hr IV.SIG Q24H JAYLYN Rx#:[id number] Oral 340 / 340 Other: # Voids 4 3 Date of Last Bowel Movement 06/29/18 06/30/18 06/29/18 # Bowel Movements 2 2 # Incontinent Bowel Movements 2 Narrative: Please see my daily progress note from this morning. There have been no significant changes in his exam prior to discharge. Results Procedures completed during hospitalization: OLIVIA, left subclavian central line Labs on day of discharge: Labs from last 24 hours 06/30/18 06/29/18 06/29/18 05:50 16:45 11:22 BUN 19 H 18 Creatinine 0.90 0.85 Estimated GFR Greater than 89 Greater than 89 Vancomycin Trough 14.1 H Preliminary micro results at discharge 06/29/18 11:22 Aerobic Blood Culture - Preliminary Blood - Peripheral No growth in 1 day Anaerobic Blood Culture - Preliminary No growth in 1 day 06/28/18 11:00 Aerobic Blood Culture - Preliminary Blood - Peripheral No growth in 2 days Anaerobic Blood Culture - Preliminary No growth in 2 days 06/28/18 11:00 Aerobic Blood Culture - Preliminary Blood - Peripheral No growth in 2 days Anaerobic Blood Culture - Preliminary No growth in 2 days - Impressions ITS Impressions Abdomen/Pelvis CT 06/27/18 00:00 CONCLUSION: 1. Subsegmental pneumonia at the lung bases. 2. Splenic enlargement. Mild periportal edema in the liver. Previous appendectomy. Chest CTA 06/27/18 00:00 CONCLUSION: 1. Negative for pulmonary embolus. 2. Cavitary nodule superior segment right lower lobe measuring 2.1 cm. Patchy airspace consolidation in both lower lobes most characteristic of bronchopneumonia. Trace pleural fluid. Venous Doppler Study 06/27/18 15:53 CONCLUSION: 1. There is occlusive deep venous thrombosis in the right subclavian and axillary veins. Lumbar Spine MRI 06/27/18 17:39 CONCLUSION: Abnormal mixed signal intensity epidural fluid collection in the anterior extradural space from L5 down to mid body of S1 causing moderate to severe thecal sac stenosis L5-S1 highly suspicious for epidural abscess in the appropriate clinical setting. Chest X-Ray 06/29/18 00:00 CONCLUSION: Slight left lung base atelectasis and/or infiltrate is seen. Discharge Plan - Discharge Disposition Patient Disposition: 07 Against Medical Advice - Discharge Condition Condition: Serious - Discharge Order Discharge Orders: AMA Discharge (Routine); Ordered 06/30/18 Ordered By: Yelena Maria ED Use Only Admit Order (Routine); Ordered 06/27/18 Ordered By: Nico Blackmon - Discharge Details Anticipated Discharge Date: 06/30/18 Discharge Comment: AMA - Physicians Team Primary Care Provider: UNKNOWN, Attending Provider: David Acosta Other Providers: Fredy Han MD ; Michelle Onofre MD ; Gurvinder Niño MD ; Jocelynn Lopez MD
[2018-06-30] MEDS ORDERED: Pharmacy Ordered Lab Info OTHER ONE (16:45)
== END 2018-06-30 11:20 | disposition left against medical advice (07) | DRG 974 ==
LOC: NEPD 11:31 → NEDA 20:27 → N03 22:14
PROVIDERS: ADMIT Internal Medicine Critical Care Medicine; ATTEND Internal Medicine Critical Care Medicine
CPT/HCPCS: 36556; 71010; 71045; 71275; 72158; 74177; 76937; 80053; 80202; 80307; 81001; 82565; 83605; 83735; 84100; 84520; 85025; 85610; 85651; 85652; 85730; 86140; 86403; 87040; 87186; 87205; 87641; 90761; 90765; 90766; 90775; 93312; 93320; 93325; 93971; 94150; 96361; 96365; 96366; 96375; 99285; A9585; J0696; J1644; J2250; J2270; J2405; J2543; J3370; J7030; J7050; Q9967